=== PATIENT | female | born 1940 | race Caucasian/White ===

== ENCOUNTER → 2016-05-03 | Outpatient (CLI) | payer MEDICARE, OTHER ==
[2016-05-03 09:20] LABS: CHLORIDE,CL 105 mmol/L (98-110); SODIUM,NA 140 mmol/L (136-146)
== END | disposition home or self-care (01) ==
LOC: MW.CHIM 08:32
PROVIDERS: ATTEND Internal Medicine
DX: M54.9 Dorsalgia, unspecified (principal); G89.29 Other chronic pain; E87.6 Hypokalemia; E66.9 Obesity, unspecified; R00.0 Tachycardia, unspecified; L76.31 Postprocedural hematoma of skin and subcutaneous tissue following a dermatologic procedure; T81.4XXA Infection following a procedure, initial encounter; N62 Hypertrophy of breast
CPT/HCPCS: 36415; 80053; 80061; 84443; 85025; 99214

== ENCOUNTER 2017-06-21 08:44 | Emergency (ER) | payer MEDICARE, OTHER ==
--- NOTE | 2017-06-21 08:55 | EDM.PDOC ---
ED HPI GENERAL MEDICAL PROBLEM - General Stated Complaint: NOSE BLEED Time Seen by Provider: 06/21/17 08:47 - History of Present Illness INITIAL COMMENTS - FREE TEXT/NARRATIVE: HISTORY AND PHYSICAL: History of present illness: Patient 76-year-old white female who is on Plavix and presents a concern of epistaxis from the right nares this started in the office of trauma she awoke with it. There's been no other concern no dizziness no chest pain shortness breath or other complaints. Review of systems: As per history of present illness and below otherwise all systems reviewed and negative. Past medical history: As per history of present illness and as reviewed below otherwise noncontributory. Surgical history: As per history of present illness and as reviewed below otherwise noncontributory. Social history: No reported history of drug or alcohol abuse. Family history: As per history of present illness and as reviewed below otherwise noncontributory. Physical exam: HEENT: Atraumatic, normocephalic, pupils reactive, negative for conjunctival pallor or scleral icterus, mucous membranes moist, throat clear, neck supple, nontender, trachea midline. Patient has epistaxis noted from her right nares the sources are not clearly identified. Lungs: Clear to auscultation, breath sounds equal bilaterally, chest nontender. Heart: S1S2, regular, negative for clicks, rubs, or JVD. Abdomen: Soft, nondistended, nontender. Negative for masses or hepatosplenomegaly. Negative for costovertebral tenderness. Pelvis: Stable nontender. Genitourinary: Deferred. Rectal: Deferred. Extremities: Atraumatic, negative for cords or calf pain. Neurovascular unremarkable. Neuro: Awake, alert, oriented. Cranial nerves II through XII unremarkable. Cerebellum unremarkable. Motor and sensory unremarkable throughout. Exam nonfocal. Diagnostics: None Therapeutics: Patient had clots cleared by blowing Rhino Rocket was placed right nares and plume was inflated good hemostasis with no evidence of anterior-posterior bleeding on reevaluation this was secured mustache dressing was applied. Impression: #1 right-sided epistaxis status post Rhino Rocket placement Definitive disposition and diagnosis as appropriate pending reevaluation and review of above. - Related Data Allergies Allergy/AdvReac Type Severity Reaction Status Date / Time atorvastatin calcium Allergy Unknown Verified 06/21/17 08:50 [From Lipitor] clarithromycin Allergy Unknown Verified 06/21/17 08:50 gabapentin [From Neurontin] Allergy Unknown Verified 06/21/17 08:50 ibuprofen Allergy Unknown Verified 06/21/17 08:50 levetiracetam [From Keppra] Allergy Nausea and Verified 06/21/17 08:50 Vomiting pitavastatin calcium Allergy Nausea and Verified 06/21/17 08:50 [From Livalo] Vomiting pravastatin Allergy Nausea and Verified 06/21/17 08:50 Vomiting pregabalin [From Lyrica] Allergy Unknown Verified 06/21/17 08:50 rosuvastatin calcium Allergy Unknown Verified 06/21/17 08:50 [From Crestor] "All antibiotics" Allergy Unknown Other Uncoded 06/21/17 08:50 keppra Allergy Nausea and Uncoded 06/21/17 08:50 Vomiting tape Allergy Rash Uncoded 06/21/17 08:50 Home Meds: Home Meds Clopidogrel [Plavix] 75 mg PO DAILY 09/09/14 [History] Hydrochlorothiazide 12.5 mg PO DAILY 09/09/14 [History] Isosorbide Mononitrate [Isosorbide Mononitrate ER] 30 mg PO DAILY 09/09/14 [ History] Multivitamin [Multivitamins] 1 tab PO DAILY 09/16/14 [History] Metoprolol Tartrate 100 mg PO DAILY #30 tablet 09/17/14 [Rx] Aspirin [Halfprin] 81 mg PO DAILY 10/11/14 [History] L.acidoph,Paracasei, B.lactis [Probiotic] 1 cap PO DAILY 10/11/14 [History] Losartan [Cozaar] 25 mg PO DAILY 10/11/14 [History] Ranolazine [Ranexa] 500 mg PO BID 04/12/15 [History] Vancomycin HCl 125 mg PO BID 04/12/15 [History] prednisoLONE [Prednisolone] 1 drop OP DAILY 04/12/15 [History] Past Medical History Cardiovascular History: Reports: High Cholesterol, Hypertension, Stents Respiratory History: Reports: COPD Gastrointestinal History: Reports: GERD, Other (See Below) Genitourinary History: Reports: UTI, 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 ED EXAM, GENERAL - Physical Exam Exam: See Below (See dictation) Course - Vital Signs Last Recorded V/S: Last Vital Signs Temp 36.6 C 06/21/17 08:50 Pulse 106 H 06/21/17 08:50 Resp 16 06/21/17 08:50 BP 149/95 H 06/21/17 08:50 Pulse Ox 99 06/21/17 08:50 Departure - Departure Time of Disposition: 08:56 Disposition: Home, Self-Care 01 Condition: Good Clinical Impression: Epistaxis - Discharge Information Referrals: PCP,None [Primary Care Provider] - Additional Instructions: The following information is given to patients seen in the emergency department who are being discharged to home. This information is to outline your options for follow-up care. We provide all patients seen in our emergency department with a follow-up referral. The need for follow-up, as well as the timing and circumstances, are variable depending upon the specifics of your emergency department visit. If you don't have a primary care physician on staff, we will provide you with a referral. We always advise you to contact your personal physician following an emergency department visit to inform them of the circumstance of the visit and for follow-up with them and/or the need for any referrals to a consulting specialist. The emergency department will also refer you to a specialist when appropriate. This referral assures that you have the opportunity for followup care with a specialist. All of these measure are taken in an effort to provide you with optimal care, which includes your followup. Under all circumstances we always encourage you to contact your private physician who remains a resource for coordinating your care. When calling for followup care, please make the office aware that this follow-up is from your recent emergency room visit. If for any reason you are refused follow-up, please contact the [facility] emergency department at and asked to speak to the emergency department charge nurse. Follow-up 24-48 hours for reevaluation and Rhino Rocket removal Bactrim as directed return as needed as discussed
[2017-06-21 09:39] VITALS: BP 119/58
== END 2017-06-21 09:49 | disposition home or self-care (01) ==
LOC: MW.ED 08:44
DX: R04.0 Epistaxis (principal); J44.9 Chronic obstructive pulmonary disease, unspecified; E78.00 Pure hypercholesterolemia, unspecified; I10 Essential (primary) hypertension; Z79.01 Long term (current) use of anticoagulants; Z88.8 Allergy status to other drugs, medicaments and biological substances; Z88.6 Allergy status to analgesic agent; Z79.899 Other long term (current) drug therapy; Z79.82 Long term (current) use of aspirin; Z87.440 Personal history of urinary (tract) infections
CPT/HCPCS: 30903; 99282; 99283

== ENCOUNTER 2017-06-23 08:43 | Emergency (ER) | payer MEDICARE, OTHER ==
--- NOTE | 2017-06-23 09:07 | EDM.PDOC ---
ED HPI GENERAL MEDICAL PROBLEM - General Chief Complaint: General Stated Complaint: F/U Time Seen by Provider: 06/23/17 09:04 Source of Information: Reports: Patient - History of Present Illness INITIAL COMMENTS - FREE TEXT/NARRATIVE: HISTORY AND PHYSICAL: History of present illness: Patient presents to remove rapid Rhino which was placed 48 hours prior due to epistaxis patient is on Plavix aspirin was held No fever nausea vomiting chills sweats no rebleed after removal Review of systems: As per history of present illness and below otherwise all systems reviewed and negative. Past medical history: As per history of present illness and as reviewed below otherwise noncontributory. Surgical history: As per history of present illness and as reviewed below otherwise noncontributory. Social history: No reported history of drug or alcohol abuse. Family history: As per history of present illness and as reviewed below otherwise noncontributory. Physical exam: HEENT: Atraumatic, normocephalic, pupils reactive, negative for conjunctival pallor or scleral icterus, mucous membranes moist, throat clear, neck supple, nontender, trachea midline. Epistaxis resolved, a beefy inflamed area on the right there was found and cauterized with nitrate stick as it was likely the source of bleed Lungs: Clear to auscultation, breath sounds equal bilaterally, chest nontender. Heart: S1S2, regular, negative for clicks, rubs, or JVD. Abdomen: Soft, nondistended, nontender. Negative for masses or hepatosplenomegaly. Negative for costovertebral tenderness. Pelvis: Stable nontender. Genitourinary: Deferred. Rectal: Deferred. Extremities: Atraumatic, negative for cords or calf pain. Neurovascular unremarkable. Neuro: Awake, alert, oriented. Cranial nerves II through XII unremarkable. Cerebellum unremarkable. Motor and sensory unremarkable throughout. Exam nonfocal. Diagnostics: [Clinical ] Therapeutics: [Rapid Rhino remove Cautery with nitrate stick ] Impression: [ epistaxis resolved ] Definitive disposition and diagnosis as appropriate pending reevaluation and review of above. - Related Data Allergies Allergy/AdvReac Type Severity Reaction Status Date / Time atorvastatin calcium Allergy Unknown Verified 06/23/17 09:05 [From Lipitor] clarithromycin Allergy Unknown Verified 06/23/17 09:05 gabapentin [From Neurontin] Allergy Unknown Verified 06/23/17 09:05 ibuprofen Allergy Unknown Verified 06/23/17 09:05 levetiracetam [From Keppra] Allergy Nausea and Verified 06/23/17 09:05 Vomiting pitavastatin calcium Allergy Nausea and Verified 06/23/17 09:05 [From Livalo] Vomiting pravastatin Allergy Nausea and Verified 06/23/17 09:05 Vomiting pregabalin [From Lyrica] Allergy Unknown Verified 06/23/17 09:05 rosuvastatin calcium Allergy Unknown Verified 06/23/17 09:05 [From Crestor] "All antibiotics" Allergy Unknown Other Uncoded 06/21/17 08:50 keppra Allergy Nausea and Uncoded 06/21/17 08:50 Vomiting tape Allergy Rash Uncoded 06/21/17 08:50 Home Meds: Home Meds Clopidogrel [Plavix] 75 mg PO DAILY 09/09/14 [History] Hydrochlorothiazide 12.5 mg PO DAILY 09/09/14 [History] Isosorbide Mononitrate [Isosorbide Mononitrate ER] 30 mg PO DAILY 09/09/14 [ History] Multivitamin [Multivitamins] 1 tab PO DAILY 09/16/14 [History] Metoprolol Tartrate 100 mg PO DAILY #30 tablet 09/17/14 [Rx] Aspirin [Halfprin] 81 mg PO DAILY 10/11/14 [History] L.acidoph,Paracasei, B.lactis [Probiotic] 1 cap PO DAILY 10/11/14 [History] Losartan [Cozaar] 25 mg PO DAILY 10/11/14 [History] Ranolazine [Ranexa] 500 mg PO BID 04/12/15 [History] Vancomycin HCl 125 mg PO BID 04/12/15 [History] prednisoLONE [Prednisolone] 1 drop OP DAILY 04/12/15 [History] Past Medical History Cardiovascular History: Reports: High Cholesterol, Hypertension, Stents Respiratory History: Reports: COPD Gastrointestinal History: Reports: GERD, Other (See Below) Genitourinary History: 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: UTI, 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: Musculoskeletal History: Reports: Arthritis - Infectious Disease History Infectious Disease History: Reports: C-Difficile, Chicken Pox, Shingles - Past Surgical History Musculoskeletal Surgical History: Reports: Knee Replacement, Other (See Below) Social & Family History - Family History Family Medical History: Noncontributory - Tobacco Use Smoking Status *Q: Never Smoker Second Hand Smoke Exposure: No - Caffeine Use Caffeine Use: Reports: None - Recreational Drug Use Recreational Drug Use: No ED ROS GENERAL - Review of Systems Review Of Systems: ROS reveals no pertinent complaints other than HPI. ED EXAM, GENERAL - Physical Exam Exam: See Below Course - Vital Signs Last Recorded V/S: Last Vital Signs Temp 97.0 F 06/23/17 08:55 Pulse 68 06/23/17 08:55 Resp 16 06/23/17 08:55 BP 108/38 L 06/23/17 08:55 Pulse Ox 94 L 06/23/17 08:55 Departure - Departure Time of Disposition: :06 Disposition: Home, Self-Care 01 Condition: Good Clinical Impression: Epistaxis - Discharge Information Referrals: Tyler Guerrero MD [Primary Care Provider] - Additional Instructions: The following information is given to patients seen in the emergency department who are being discharged to home. This information is to outline your options for follow-up care. We provide all patients seen in our emergency department with a follow-up referral. The need for follow-up, as well as the timing and circumstances, are variable depending upon the specifics of your emergency department visit. If you don't have a primary care physician on staff, we will provide you with a referral. We always advise you to contact your personal physician following an emergency department visit to inform them of the circumstance of the visit and for follow-up with them and/or the need for any referrals to a consulting specialist. The emergency department will also refer you to a specialist when appropriate. This referral assures that you have the opportunity for follow-up care with a specialist. All of these measure are taken in an effort to provide you with optimal care, which includes your follow-up. Under all circumstances we always encourage you to contact your private physician who remains a resource for coordinating your care. When calling for follow-up care, please make the office aware that this follow-up is from your recent emergency room visit. If for any reason you are refused follow-up, please contact the [facility] emergency department at and asked to speak to the emergency department charge nurse.
[2017-06-23 10:25] VITALS: BP 116/35
== END 2017-06-23 09:45 | disposition home or self-care (01) ==
LOC: MW.ED 08:43
DX: R04.0 Epistaxis (principal); E78.00 Pure hypercholesterolemia, unspecified; I10 Essential (primary) hypertension; Z88.8 Allergy status to other drugs, medicaments and biological substances; Z88.1 Allergy status to other antibiotic agents; Z88.6 Allergy status to analgesic agent; Z79.899 Other long term (current) drug therapy; Z79.82 Long term (current) use of aspirin
CPT/HCPCS: 99282

== ENCOUNTER 2018-08-18 08:55 | Observation (INO) | payer MEDICARE, OTHER ==
[2018-08-18] MEDS ORDERED: Sodium Chloride 0.9% 2.5 ML Syringe FLUSH PRN (09:06)
[2018-08-18] MEDS ORDERED: Sodium Chloride 0.9% 10 ML Syringe FLUSH PRN (09:06)
[2018-08-18] MEDS ORDERED: Aspirin 81 MG Tab.Chew PO ONE (09:06)
[2018-08-18] MEDS ORDERED: Pantoprazole 40 MG Vial ONE (09:10)
[2018-08-18] MEDS ORDERED: Sodium Chloride 0.9% 20 ML ONE (09:11)
--- NOTE | 2018-08-18 09:11 | EDM.PDOC ---
ED HPI GENERAL MEDICAL PROBLEM - General Chief Complaint: Chest Pain Stated Complaint: CHEST PAINS Time Seen by Provider: 08/18/18 08:58 - History of Present Illness INITIAL COMMENTS - FREE TEXT/NARRATIVE: HISTORY AND PHYSICAL: History of present illness: The patient is a 77-year-old female with a history of hypertension hypercholesterolemia sleep apnea for which she uses CPAP, Mild COPD who has had cardiac disease in the past and has had stent placement times multiple with the last one being in 2011 and who follows with Dr. Richey at [facility] for cardiac issues and presents with right-sided chest wall pain and right shoulder pain that woke her from sleep at 2 AM. The patient says that when she has cardiac chest pain it is on the right side not on the left side and she does use her nitroglycerin when this occurs she has not used it recently. She said that she had a normal day yesterday and was sleeping and at 2 AM awoke with the discomfort associated with indigestion. She did not have any vomiting or nausea or abdominal pain and she said that she took 2 sublingual nitros at 3 AM and the pain did ease up but didn't completely go away. She says she has been awake since that time because of the discomfort and it worsened again and is currently a 7/10. She says that when she moves her arm on the right side there is discomfort and she says she has occasional intermittent episodes of chest wall pain as a result of a breast surgery/ reduction in the past. She has no history of trauma coughing or upper respiratory symptoms and does not feel short of breath. She currently rates her pain as a 7/10. She says it is difficult to rate but that is what she is giving it. She takes aspirin daily and her last dose was last evening as well as Plavix. She has no leg pain or swelling and has no palpitations. She otherwise has been eating and drinking normally. She has no upper abdominal pain and has a history of a cholecystectomy Review of systems: As per history of present illness and below otherwise all systems reviewed and negative. Past medical history: As per history of present illness and as reviewed below otherwise noncontributory. Surgical history: As per history of present illness and as reviewed below otherwise noncontributory. Social history: No reported history of drug or alcohol abuse. Family history: As per history of present illness and as reviewed below otherwise noncontributory. Physical exam: General: Well-developed well-nourished mildly overweight female who is nontoxic and vital signs are noted by me HEENT: Atraumatic, normocephalic, pupils reactive, negative for conjunctival pallor or scleral icterus, mucous membranes moist, throat clear, neck supple, nontender, trachea midline. Lungs: Clear to auscultation, breath sounds equal bilaterally, chest wall has tenderness with palpation to the right of the midline along the anterior chest wall which reproduces her plane somewhat but there is no defects crepitus or soft tissue changes. Also when I move the patient's right upper extremity elicits chest wall discomfort mimics her pain. Heart: S1S2, regular, negative for clicks, rubs, or JVD. no overt murmurs Abdomen: Soft, nondistended, nontender. Negative for masses or hepatosplenomegaly. Negative for costovertebral tenderness. Pelvis: Stable nontender. Genitourinary: Deferred. Rectal: Deferred. Extremities: Atraumatic, negative for cords or calf pain. Neurovascular unremarkable. no pedal edema or leg asymmetry Neuro: Awake, alert, oriented. Cranial nerves II through XII unremarkable. Cerebellum unremarkable. Motor and sensory unremarkable throughout. Exam nonfocal. Diagnostics: EKG chest x-ray CBC CMP INR troponin d-dimer CTA of the chest Therapeutics: IV O2 monitor aspirin nitroglycerin sublingual Protonix morphine Patient did not get any relief with the sublingual nitroglycerin. It went from a 7 to a 6 and then back up to an 8 and she says it is more deep achy pain and is now continuing to radiate to her right upper extremity. We will give a dose of morphine and in light of the positive d-dimer we will order a CTA of the chest Patient and family bedside are aware of all testing results and care plan for observation admission. The patient tells me that the chest discomfort is now almost completely gone with the morphine. Case was discussed with Dr. Andrea at 1140 who accepts the patient for observation admission Impression: Atypical right chest pain Definitive disposition and diagnosis as appropriate pending reevaluation and review of above. chest Pain Score (Numeric/FACES): 5 - Related Data Allergies Allergy/AdvReac Type Severity Reaction Status Date / Time atorvastatin calcium Allergy Unknown Verified 08/18/18 09:01 [From Lipitor] clarithromycin Allergy Unknown Verified 08/18/18 09:01 gabapentin [From Neurontin] Allergy Unknown Verified 08/18/18 09:01 ibuprofen Allergy Unknown Verified 08/18/18 09:01 levetiracetam [From Keppra] Allergy Nausea and Verified 08/18/18 09:01 Vomiting pitavastatin calcium Allergy Nausea and Verified 08/18/18 09:01 [From Livalo] Vomiting pravastatin Allergy Nausea and Verified 08/18/18 09:01 Vomiting pregabalin [From Lyrica] Allergy Unknown Verified 08/18/18 09:01 rosuvastatin calcium Allergy Unknown Verified 08/18/18 09:01 [From Crestor] "All antibiotics" Allergy Unknown Other Uncoded 06/21/17 08:50 keppra Allergy Nausea and Uncoded 06/21/17 08:50 Vomiting tape Allergy Rash Uncoded 06/21/17 08:50 Home Meds: Home Meds Clopidogrel [Plavix] 75 mg PO DAILY 09/09/14 [History] Isosorbide Mononitrate [Isosorbide Mononitrate ER] 60 mg PO DAILY 09/09/14 [ History] hydroCHLOROthiazide [Hydrochlorothiazide] 25 mg PO DAILY 09/09/14 [History] Aspirin [Halfprin] 81 mg PO DAILY 10/11/14 [History] Losartan [Cozaar] 50 mg PO DAILY 10/11/14 [History] Aspirin 325 mg PO DAILY 06/23/17 [History] Nitroglycerin [Nitrostat] 0.4 mg SL .EVERY 5 MINUTES PRN MDD 3 TABLETS 06/23/17 [History] cycloSPORINE [Restasis Multidose] 1 drop EYEBOTH BID 06/23/17 [History] Metoprolol Tartrate 50 mg PO BID 08/18/18 [History] amLODIPine [Norvasc] 5 mg PO DAILY 08/18/18 [History] Past Medical History HEENT History: Reports: Other (See Below) Other HEENT History: dry eyes Cardiovascular History: Reports: High Cholesterol, Hypertension, Stents Respiratory History: Reports: COPD Gastrointestinal History: Reports: GERD Genitourinary History: Reports: UTI, Recurrent [employer] History: Reports: Musculoskeletal History: Reports: Arthritis - Infectious Disease History Infectious Disease History: Reports: C-Difficile, Chicken Pox, Shingles - Past Surgical History HEENT Surgical History: Reports: Cataract Surgery GI Surgical History: Reports: Appendectomy, Cholecystectomy Musculoskeletal Surgical History: Reports: Knee Replacement, Other (See Below) Other Musculoskeletal Surgeries/Procedures:: bilateral Social & Family History - Family History Family Medical History: Noncontributory - Caffeine Use Caffeine Use: Reports: Coffee, Tea ED ROS GENERAL - Review of Systems Review Of Systems: ROS reveals no pertinent complaints other than HPI. ED EXAM, GENERAL - Physical Exam Exam: See Below (See dictation) Course - Vital Signs Last Recorded V/S: Last Vital Signs Temp 36.3 C 08/18/18 09:01 Pulse 51 L 08/18/18 10:09 Resp 17 08/18/18 10:09 BP 119/53 L 08/18/18 10:09 Pulse Ox 97 08/18/18 10:09 - Orders/Labs/Meds Orders: Active Orders 24 hr Category Date Time Status Patient Status [ADT] Stat ADT 08/18/18 11:43 Ordered Cardiac Monitoring [RC] . DIRECTED Care 08/18/18 09:05 Active EKG Documentation Completion [RC] STAT Care 08/18/18 09:05 Active Oxygen Therapy, ED [RC] ASDIRECTED Care 08/18/18 09:05 Active Pulse Oximetry [RC] ASDIRECTED Care 08/18/18 09:05 Active Sodium Chloride 0.9% [Saline Flush] Med 08/18/18 09:06 Active 10 ml FLUSH ASDIRECTED PRN Sodium Chloride 0.9% [Saline Flush] Med 08/18/18 09:06 Active 2.5 ml FLUSH ASDIRECTED PRN Saline Lock Insert [OM.PC] Stat Oth 08/18/18 09:05 Ordered Medication Orders Sodium Chloride (Saline Flush) 10 ml FLUSH ASDIRECTED PRN PRN Reason: Keep Vein Open Sodium Chloride (Saline Flush) 2.5 ml FLUSH ASDIRECTED PRN PRN Reason: Keep Vein Open Labs: Laboratory Tests 08/18/18 08/18/18 08/18/18 Range/Units 09:05 09:05 09:05 WBC 9.89 (4.0-11.0) K/uL RBC 4.59 (4.30-5.90) M/uL Hgb 12.2 (12.0-16.0) g/dL Hct 38.7 (36.0-46.0) % MCV 84.3 (80.0-98.0) fL MCH 26.6 L (27.0-32.0) pg MCHC 31.5 (31.0-37.0) g/dL RDW Std Deviation 48.2 (28.0-62.0) fl RDW Coeff of Raj 16 H (11.0-15.0) % Plt Count 143 L (150-400) K/uL MPV 10.40 (7.40-12.00) fL Neut % (Auto) 35.3 L (48.0-80.0) % Lymph % (Auto) 56.3 H (16.0-40.0) % Tucker % (Auto) 5.8 (0.0-15.0) % Eos % (Auto) 2.2 (0.0-7.0) % Baso % (Auto) 0.4 (0.0-1.5) % Neut # (Auto) 3.5 (1.4-5.7) K/uL Lymph # (Auto) 5.6 H (0.6-2.4) K/uL Tucker # (Auto) 0.6 (0.0-0.8) K/uL Eos # (Auto) 0.2 (0.0-0.7) K/uL Baso # (Auto) 0.0 (0.0-0.1) K/uL Nucleated RBC % 0.0 /100WBC Nucleated RBCs # 0 K/uL INR 0.97 D-Dimer, Quantitative (0.0-0.50) mg/L FEU Sodium 138 (136-145) mmol/L Potassium 3.9 (3.5-5.1) mmol/L Chloride 104 (98-107) mmol/L Carbon Dioxide 25.0 (21.0-32.0) mmol/L BUN 25 H (7.0-18.0) mg/dL Creatinine 1.2 H (0.6-1.0) mg/dL Est Cr Clr Drug Dosing 36.75 mL/min Estimated GFR (MDRD) 43.6 ml/min Glucose 153 H (74-106) mg/dL Calcium 8.7 (8.5-10.1) mg/dL Total Bilirubin 0.4 (0.2-1.0) mg/dL AST 18 (15-37) IU/L ALT 27 (14-63) IU/L Alkaline Phosphatase 81 (46-116) U/L Troponin I < 0.050 (0.000-0.056) ng/mL Total Protein 7.2 (6.4-8.2) g/dL Albumin 3.4 (3.4-5.0) g/dL Globulin 3.8 (2.6-4.0) g/dL Albumin/Globulin Ratio 0.9 (0.9-1.6) 08/18/18 Range/Units 09:05 WBC (4.0-11.0) K/uL RBC (4.30-5.90) M/uL Hgb (12.0-16.0) g/dL Hct (36.0-46.0) % MCV (80.0-98.0) fL MCH (27.0-32.0) pg MCHC (31.0-37.0) g/dL RDW Std Deviation (28.0-62.0) fl RDW Coeff of Raj (11.0-15.0) % Plt Count (150-400) K/uL MPV (7.40-12.00) fL Neut % (Auto) (48.0-80.0) % Lymph % (Auto) (16.0-40.0) % Tucker % (Auto) (0.0-15.0) % Eos % (Auto) (0.0-7.0) % Baso % (Auto) (0.0-1.5) % Neut # (Auto) (1.4-5.7) K/uL Lymph # (Auto) (0.6-2.4) K/uL Tucker # (Auto) (0.0-0.8) K/uL Eos # (Auto) (0.0-0.7) K/uL Baso # (Auto) (0.0-0.1) K/uL Nucleated RBC % /100WBC Nucleated RBCs # K/uL INR D-Dimer, Quantitative 3.91 H (0.0-0.50) mg/L FEU Sodium (136-145) mmol/L Potassium (3.5-5.1) mmol/L Chloride (98-107) mmol/L Carbon Dioxide (21.0-32.0) mmol/L BUN (7.0-18.0) mg/dL Creatinine (0.6-1.0) mg/dL Est Cr Clr Drug Dosing mL/min Estimated GFR (MDRD) ml/min Glucose (74-106) mg/dL Calcium (8.5-10.1) mg/dL Total Bilirubin (0.2-1.0) mg/dL AST (15-37) IU/L ALT (14-63) IU/L Alkaline Phosphatase (46-116) U/L Troponin I (0.000-0.056) ng/mL Total Protein (6.4-8.2) g/dL Albumin (3.4-5.0) g/dL Globulin (2.6-4.0) g/dL Albumin/Globulin Ratio (0.9-1.6) Meds: Medications Generic Name Dose Route Start Last Admin Trade Name Freq PRN Reason Stop Dose Admin Sodium Chloride 10 ml 08/18/18 09:06 Saline Flush FLUSH ASDIRECTED PRN Keep Vein Open Sodium Chloride 2.5 ml 08/18/18 09:06 Saline Flush FLUSH ASDIRECTED PRN Keep Vein Open Discontinued Medications Generic Name Dose Route Start Last Admin Trade Name Freq PRN Reason Stop Dose Admin Aspirin 324 mg 08/18/18 09:06 08/18/18 09:15 Aspirin PO 08/18/18 09:07 324 mg ONETIME ONE Administration Sodium Chloride Confirm 08/18/18 09:11 08/18/18 09:19 Normal Saline Administered 08/18/18 09:12 Not Given Dose 20 mls @ as directed .ROUTE .STK-MED ONE Iopamidol 50 ml 08/18/18 11:05 08/18/18 11:08 Isovue Multipack-370 (76%) IVPUSH 08/18/18 11:06 50 ml ONETIME STA Administration Morphine Sulfate 2 mg 08/18/18 10:17 08/18/18 10:23 Morphine IVPUSH 08/18/18 10:18 2 mg ONETIME ONE Administration Nitroglycerin 0.4 mg 08/18/18 09:06 08/18/18 09:28 Nitrostat SL 0.4 mg Q5M PRN Administration Chest Pain Ondansetron HCl 4 mg 08/18/18 09:58 08/18/18 10:15 Zofran IVPUSH 08/18/18 09:59 4 mg ONETIME ONE Administration Pantoprazole Sodium 80 mg 08/18/18 09:12 08/18/18 09:19 Protonix Iv IVPUSH 08/18/18 09:13 80 mg .BOLUS ONE Administration Pantoprazole Sodium Confirm 08/18/18 09:10 08/18/18 09:18 Protonix Iv Administered 08/18/18 09:11 Not Given Dose 40 mg .ROUTE .STK-MED ONE Departure - Departure Time of Disposition: 11:44 Disposition: Refer to Observation Condition: Good Clinical Impression: Atypical chest pain - Discharge Information Referrals: PCP,None [Primary Care Provider] - Forms: ED Department Discharge - My Orders Last 24 Hours: My Active Orders 08/18/18 09:05 Cardiac Monitoring [RC] . DIRECTED EKG Documentation Completion [RC] STAT Oxygen Therapy, ED [RC] ASDIRECTED Pulse Oximetry [RC] ASDIRECTED Saline Lock Insert [OM.PC] Stat 08/18/18 09:06 Sodium Chloride 0.9% [Saline Flush] 10 ml FLUSH ASDIRECTED PRN Sodium Chloride 0.9% [Saline Flush] 2.5 ml FLUSH ASDIRECTED PRN 08/18/18 11:43 Patient Status [ADT] Stat - Assessment/Plan Last 24 Hours: My Active Orders 08/18/18 09:05 Cardiac Monitoring [RC] . DIRECTED EKG Documentation Completion [RC] STAT Oxygen Therapy, ED [RC] ASDIRECTED Pulse Oximetry [RC] ASDIRECTED Saline Lock Insert [OM.PC] Stat 08/18/18 09:06 Sodium Chloride 0.9% [Saline Flush] 10 ml FLUSH ASDIRECTED PRN Sodium Chloride 0.9% [Saline Flush] 2.5 ml FLUSH ASDIRECTED PRN 08/18/18 11:43 Patient Status [ADT] Stat
[2018-08-18] MEDS ORDERED: Pantoprazole 40 MG Vial IVPUSH ONE (09:12)
[2018-08-18] MEDS: Nitroglycerin 0.4 MG Tab.SL SL PRN ×3 (09:16→09:28)
[2018-08-18 09:49] LABS: CHLORIDE,CL 104 mmol/L (98-107); SODIUM,NA 138 mmol/L (136-145)
--- NOTE | 2018-08-18 09:54 | CR ---
EXAMINATION: Portable chest radiograph. HISTORY: Shortness of breath. Comparison: 02/28/2017. FINDINGS: The trachea is midline. The cardiomediastinal silhouette is within normal limits. No pulmonary infiltrates, effusions or pneumothorax. Osseous structures appear unremarkable. IMPRESSION: No acute cardiopulmonary process.
[2018-08-18] MEDS ORDERED: Ondansetron 4 MG/2 ML SDV IVPUSH ONE (09:58)
[2018-08-18] MEDS ORDERED: Morphine 2 MG/ML Syringe IVPUSH ONE (10:17)
[2018-08-18] MEDS ORDERED: Iopamidol 755 MG/ML 500 ML Multipack Bottle IVPUSH STA (11:05)
--- NOTE | 2018-08-18 11:28 | CT ---
EXAMINATION: CTA chest HISTORY: Increased d-dimer COMPARISON: 01/15/2011 TECHNIQUE: Axial CT imaging obtained through the chest following the administration of 50 mL of Isovue-370 in the right antecubital fossa. Coronal and sagittal reconstructions obtained. FINDINGS: The lungs are clear without focal consolidation. No pleural effusion or pneumothorax. Mild atelectasis. The heart is borderline in size without a pericardial effusion. Moderate coronary artery calcifications are noted. The main and central pulmonary arteries are patent. Calcified granuloma within the right lung base. Mildly prominent mediastinal soft tissue/lymph nodes measuring up to 1 cm. Not significantly changed. Small area of fat necrosis within the upper right breast. Central airways are clear. No axillary lymphadenopathy. Visualized images of the upper abdomen appear normal. No suspicious osseous identified. IMPRESSION: 1. No acute cardiopulmonary finding. 2. Moderate coronary artery calcifications.
[2018-08-18] MEDS: Sodium Chloride 0.9% 1,000 ML IV SCH ×3 (12:20→22:54)
--- NOTE | 2018-08-18 13:36 | PCM.HP ---
H&P History of Present Illness - General Date of Service: 08/18/18 Admit Problem/Dx: Admission Diagnosis/Problem Admission Diagnosis/Problem Atypical chest pain - History of Present Illness Initial Comments - Free Text/Narative: 77 yo female with pmh of CAD, s/p stents, COPD, and MIRACLE who presents with one day history of right shoulder pain. The pain radiates to the neck, chest and arm. The pain is made worse withe movement of the shoulder. She denies any shortness of breath, fevers, cough, or lightheadedness. Inital EKG and cardiac enzymes did not show any signs of ischemia. D-dimer was elevated but CT chest scan was negative for PE. chest Pain Score (Numeric/FACES): 5 Right Shoulder Pain Score (Numeric/FACES): 6 - Related Data Allergies/Adverse Reactions: Allergies Allergy/AdvReac Type Severity Reaction Status Date / Time atorvastatin calcium Allergy Unknown Verified 08/18/18 13:23 [From Lipitor] clarithromycin Allergy Unknown Verified 08/18/18 13:23 gabapentin [From Neurontin] Allergy Unknown Verified 08/18/18 13:23 ibuprofen Allergy Unknown Verified 08/18/18 13:23 levetiracetam [From Keppra] Allergy Nausea and Verified 08/18/18 13:23 Vomiting pitavastatin calcium Allergy Nausea and Verified 08/18/18 13:23 [From Livalo] Vomiting pravastatin Allergy Nausea and Verified 08/18/18 13:23 Vomiting pregabalin [From Lyrica] Allergy Unknown Verified 08/18/18 13:23 rosuvastatin calcium Allergy Unknown Verified 08/18/18 13:23 [From Crestor] "All antibiotics" Allergy Unknown Other Uncoded 08/18/18 13:23 keppra Allergy Nausea and Uncoded 08/18/18 13:23 Vomiting tape Allergy Rash Uncoded 08/18/18 13:23 Home Medications: Home Meds Clopidogrel [Plavix] 75 mg PO DAILY 09/09/14 [History] Isosorbide Mononitrate [Isosorbide Mononitrate ER] 60 mg PO DAILY 09/09/14 [ History] hydroCHLOROthiazide [Hydrochlorothiazide] 25 mg PO DAILY 09/09/14 [History] Aspirin [Halfprin] 81 mg PO DAILY 10/11/14 [History] Losartan [Cozaar] 50 mg PO DAILY 10/11/14 [History] Aspirin 325 mg PO DAILY 06/23/17 [History] Nitroglycerin [Nitrostat] 0.4 mg SL .EVERY 5 MINUTES PRN MDD 3 TABLETS 06/23/17 [History] cycloSPORINE [Restasis Multidose] 1 drop EYEBOTH BID 06/23/17 [History] Metoprolol Tartrate 50 mg PO BID 08/18/18 [History] amLODIPine [Norvasc] 5 mg PO DAILY 08/18/18 [History] traMADol [Ultram] 100 mg PO ASDIRECTED PRN 08/18/18 [History] Past Medical History HEENT History: Reports: Other (See Below) Other HEENT History: dry eyes Cardiovascular History: Reports: High Cholesterol, Hypertension, Stents Respiratory History: Reports: COPD Gastrointestinal History: Reports: GERD Genitourinary History: Reports: UTI, Recurrent 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: Musculoskeletal History: Reports: Arthritis Neurological History: Reports: Migraines Psychiatric History: Reports: None Endocrine/Metabolic History: Reports: None Hematologic History: Reports: None Immunologic History: Reports: None Oncologic (Cancer) History: Reports: None Dermatologic History: Reports: Eczema - Infectious Disease History Infectious Disease History: Reports: C-Difficile, Chicken Pox, Shingles - Past Surgical History HEENT Surgical History: Reports: Cataract Surgery GI Surgical History: Reports: Appendectomy, Cholecystectomy Musculoskeletal Surgical History: Reports: Knee Replacement, Other (See Below) Other Musculoskeletal Surgeries/Procedures:: bilateral Social & Family History - Family History Family Medical History: Noncontributory - Tobacco Use Smoking Status *Q: Never Smoker Second Hand Smoke Exposure: No - Caffeine Use Caffeine Use: Reports: Coffee, Tea - Recreational Drug Use Recreational Drug Use: No H&P Review of Systems - Review of Systems: Review Of Systems: ROS reveals no pertinent complaints other than HPI. Exam - Exam Exam: See Below - Vital Signs Vital Signs: Last Vital Signs Temp 36.3 C 08/18/18 09:01 Pulse 46 L 08/18/18 12:05 Resp 18 08/18/18 12:05 BP 109/49 L 08/18/18 12:05 Pulse Ox 99 08/18/18 12:05 Weight: 99.79 kg - Exam General: Alert, Oriented HEENT: Mucosa Moist & [place] Neck: Supple, Trachea Midline Lungs: Clear to Auscultation, Normal Respiratory Effort Cardiovascular: Regular Rate, Regular Rhythm, Other (no chest wall tenderness, no lesions on chest) GI/Abdominal Exam: Soft, Non-Tender Extremities: No Pedal Edema, Other (pain on abduction of right shoulder and internal rotation.) Skin: Warm, Dry, Intact Neurological: No: Focal Deficit - Patient Data Lab Results Last 24 hrs: Laboratory Results - last 24 hr 08/18/18 08/18/18 08/18/18 Range/Units 09:05 09:05 09:05 WBC 9.89 (4.0-11.0) K/uL RBC 4.59 (4.30-5.90) M/uL Hgb 12.2 (12.0-16.0) g/dL Hct 38.7 (36.0-46.0) % MCV 84.3 (80.0-98.0) fL MCH 26.6 L (27.0-32.0) pg MCHC 31.5 (31.0-37.0) g/dL RDW Std Deviation 48.2 (28.0-62.0) fl RDW Coeff of Raj 16 H (11.0-15.0) % Plt Count 143 L (150-400) K/uL MPV 10.40 (7.40-12.00) fL Neut % (Auto) 35.3 L (48.0-80.0) % Lymph % (Auto) 56.3 H (16.0-40.0) % [place] % (Auto) 5.8 (0.0-15.0) % Eos % (Auto) 2.2 (0.0-7.0) % Baso % (Auto) 0.4 (0.0-1.5) % Neut # (Auto) 3.5 (1.4-5.7) K/uL Lymph # (Auto) 5.6 H (0.6-2.4) K/uL [place] # (Auto) 0.6 (0.0-0.8) K/uL Eos # (Auto) 0.2 (0.0-0.7) K/uL Baso # (Auto) 0.0 (0.0-0.1) K/uL Nucleated RBC % 0.0 /100WBC Nucleated RBCs # 0 K/uL INR 0.97 D-Dimer, Quantitative (0.0-0.50) mg/L FEU Sodium 138 (136-145) mmol/L Potassium 3.9 (3.5-5.1) mmol/L Chloride 104 (98-107) mmol/L Carbon Dioxide 25.0 (21.0-32.0) mmol/L BUN 25 H (7.0-18.0) mg/dL Creatinine 1.2 H (0.6-1.0) mg/dL Est Cr Clr Drug Dosing 36.75 mL/min Estimated GFR (MDRD) 43.6 ml/min Glucose 153 H (74-106) mg/dL Calcium 8.7 (8.5-10.1) mg/dL Total Bilirubin 0.4 (0.2-1.0) mg/dL AST 18 (15-37) IU/L ALT 27 (14-63) IU/L Alkaline Phosphatase 81 (46-116) U/L Troponin I < 0.050 (0.000-0.056) ng/mL Total Protein 7.2 (6.4-8.2) g/dL Albumin 3.4 (3.4-5.0) g/dL Globulin 3.8 (2.6-4.0) g/dL Albumin/Globulin Ratio 0.9 (0.9-1.6) 08/18/18 Range/Units 09:05 WBC (4.0-11.0) K/uL RBC (4.30-5.90) M/uL Hgb (12.0-16.0) g/dL Hct (36.0-46.0) % MCV (80.0-98.0) fL MCH (27.0-32.0) pg MCHC (31.0-37.0) g/dL RDW Std Deviation (28.0-62.0) fl RDW Coeff of Raj (11.0-15.0) % Plt Count (150-400) K/uL MPV (7.40-12.00) fL Neut % (Auto) (48.0-80.0) % Lymph % (Auto) (16.0-40.0) % [place] % (Auto) (0.0-15.0) % Eos % (Auto) (0.0-7.0) % Baso % (Auto) (0.0-1.5) % Neut # (Auto) (1.4-5.7) K/uL Lymph # (Auto) (0.6-2.4) K/uL [place] # (Auto) (0.0-0.8) K/uL Eos # (Auto) (0.0-0.7) K/uL Baso # (Auto) (0.0-0.1) K/uL Nucleated RBC % /100WBC Nucleated RBCs # K/uL INR D-Dimer, Quantitative 3.91 H (0.0-0.50) mg/L FEU Sodium (136-145) mmol/L Potassium (3.5-5.1) mmol/L Chloride (98-107) mmol/L Carbon Dioxide (21.0-32.0) mmol/L BUN (7.0-18.0) mg/dL Creatinine (0.6-1.0) mg/dL Est Cr Clr Drug Dosing mL/min Estimated GFR (MDRD) ml/min Glucose (74-106) mg/dL Calcium (8.5-10.1) mg/dL Total Bilirubin (0.2-1.0) mg/dL AST (15-37) IU/L ALT (14-63) IU/L Alkaline Phosphatase (46-116) U/L Troponin I (0.000-0.056) ng/mL Total Protein (6.4-8.2) g/dL Albumin (3.4-5.0) g/dL Globulin (2.6-4.0) g/dL Albumin/Globulin Ratio (0.9-1.6) Result Diagrams: 08/18/18 09:05 08/18/18 09:05 Problem List Initiated/Reviewed/Updated: Yes Orders Last 24hrs: Active Orders 24 hr Category Date Time Status Patient Status [ADT] Stat ADT 08/18/18 11:43 Active Antiembolic Devices [RC] PER UNIT ROUTINE Care 08/18/18 13:25 Ordered Cardiac Monitoring [RC] . DIRECTED Care 08/18/18 09:05 Active EKG Documentation Completion [RC] STAT Care 08/18/18 09:05 Active Oxygen Therapy [RC] PRN Care 08/18/18 13:24 Ordered Oxygen Therapy, ED [RC] ASDIRECTED Care 08/18/18 09:05 Active Pulse Oximetry [RC] ASDIRECTED Care 08/18/18 09:05 Active Up ad Ebonie [RC] ASDIRECTED Care 08/18/18 13:24 Ordered VTE/DVT Education [RC] PER UNIT ROUTINE Care 08/18/18 13:24 Ordered Vital Signs [RC] Q4H Care 08/18/18 13:24 Ordered Regular Diet [DIET] Diet 08/18/18 Breakfast Ordered TROPONIN I [CHEM] Q6H Lab 08/18/18 15:00 Ordered TROPONIN I [CHEM] Q6H Lab 08/18/18 21:00 Ordered Aspirin Med 08/19/18 09:00 Ordered 325 mg PO DAILY Clopidogrel [Plavix] Med 08/19/18 09:00 Ordered 75 mg PO DAILY Isosorbide Mononitrate [Imdur] Med 08/19/18 09:00 Ordered 60 mg PO DAILY Losartan [Cozaar] Med 08/19/18 09:00 Ordered 50 mg PO DAILY Metoprolol Tartrate Med 08/18/18 21:00 Ordered 50 mg PO BID Sodium Chloride 0.9% [Normal Saline] 1,000 ml Med 08/18/18 12:15 Active IV ASDIRECTED Sodium Chloride 0.9% [Saline Flush] Med 08/18/18 09:06 Active 10 ml FLUSH ASDIRECTED PRN Sodium Chloride 0.9% [Saline Flush] Med 08/18/18 09:06 Active 2.5 ml FLUSH ASDIRECTED PRN cycloSPORINE [Restasis Multidose] Med 08/18/18 21:00 Ordered 1 drop EYEBOTH BID hydroCHLOROthiazide Med 08/19/18 09:00 Ordered 25 mg PO DAILY Saline Lock Insert [OM.PC] Stat Oth 08/18/18 09:05 Ordered Sequential Compression Device [OM.PC] Per Unit Routine Oth 08/18/18 13:25 Ordered Resuscitation Status Routine Resus Stat 08/18/18 13:24 Ordered Medication Orders Aspirin (Aspirin) 325 mg PO DAILY ERNA Clopidogrel Bisulfate (Plavix) 75 mg PO DAILY ERNA Hydrochlorothiazide (Hydrochlorothiazide) 25 mg PO DAILY ERNA Sodium Chloride (Normal Saline) 1,000 mls @ 125 mls/hr IV ASDIRECTED ERNA Last Admin: 08/18/18 12:20 Dose: 125 mls/hr Isosorbide Mononitrate (Imdur) 60 mg PO DAILY ERNA Losartan Potassium (Cozaar) 50 mg PO DAILY ERNA Non-Formulary Medication (Cyclosporine [Restasis Multidose]) 1 drop EYEBOTH BID ERNA Non-Formulary Medication (Metoprolol Tartrate) 50 mg PO BID ERNA Sodium Chloride (Saline Flush) 10 ml FLUSH ASDIRECTED PRN PRN Reason: Keep Vein Open Sodium Chloride (Saline Flush) 2.5 ml FLUSH ASDIRECTED PRN PRN Reason: Keep Vein Open Assessment/Plan Comment:: 77 yo female admitted for chest pain. She ruled out for acute coronary syndrome with serial negative cardiac enzymes. I suspect her shoulder pain is likely musculoskeletal. She was discharged home and is to follow up with Dr. Newell.
[2018-08-18] MEDS: Acetaminophen 325 MG Tab PO PRN ×2 (15:19→20:23)
[2018-08-18] MEDS: CYCLOSPORINE EYEBOTH SCH (20:26)
[2018-08-18] MEDS ORDERED: Metoprolol Tartrate 50 MG Tab PO SCH (21:00)
[2018-08-18] MEDS: traMADol 50 MG Tab PO PRN (21:56)
[2018-08-19] MEDS: Acetaminophen 325 MG Tab PO PRN ×2 (04:09→11:46)
[2018-08-19] MEDS ORDERED: Ondansetron 4 MG/2 ML SDV IVPUSH PRN (04:40)
[2018-08-19] MEDS ORDERED: Hydrochlorothiazide 25 MG Tab PO SCH (09:00)
[2018-08-19] MEDS ORDERED: Metoprolol Tartrate 50 MG Tab PO SCH (09:00)
[2018-08-19] MEDS ORDERED: Clopidogrel 75 MG Tab PO SCH (09:00)
[2018-08-19] MEDS ORDERED: Losartan 50 MG Tab PO SCH ×2 (09:00)
[2018-08-19] MEDS ORDERED: Aspirin 325 MG Tab.EC PO SCH (09:00)
[2018-08-19] MEDS ORDERED: Isosorbide Mononitrate 60 MG Tab.ER PO SCH ×2 (09:00)
[2018-08-19] MEDS: CYCLOSPORINE EYEBOTH SCH (09:06)
[2018-08-19] MEDS: traMADol 50 MG Tab PO PRN (09:59)
[2018-08-19 12:05] VITALS: BP 143/66
== END 2018-08-19 13:20 | disposition home or self-care (01) ==
LOC: MW.ED 08:55 → MW.MS 11:43
PROVIDERS: ADMIT Internal Medicine; ATTEND Internal Medicine
DX: R07.89 Other chest pain (principal); I25.10 Atherosclerotic heart disease of native coronary artery without angina pectoris; I10 Essential (primary) hypertension; E78.00 Pure hypercholesterolemia, unspecified; J44.9 Chronic obstructive pulmonary disease, unspecified; G47.33 Obstructive sleep apnea (adult) (pediatric); K21.9 Gastro-esophageal reflux disease without esophagitis; M19.90 Unspecified osteoarthritis, unspecified site; Z88.1 Allergy status to other antibiotic agents; Z88.8 Allergy status to other drugs, medicaments and biological substances; Z91.09 Other allergy status, other than to drugs and biological substances; Z79.82 Long term (current) use of aspirin; Z79.02 Long term (current) use of antithrombotics/antiplatelets; Z79.899 Other long term (current) drug therapy; Z98.890 Other specified postprocedural states; Z99.89 Dependence on other enabling machines and devices; Z95.5 Presence of coronary angioplasty implant and graft
CPT/HCPCS: 36415; 71045; 71275; 80053; 84484; 85025; 85379; 85610; 93005; 96361; 96374; 96375; 96376; 99285; A9270; C9113; G0378; J2270; J2405; J7040; Q9967

== ENCOUNTER 2020-09-08 21:39 | Emergency (ER) | payer MEDICARE, OTHER ==
[2020-09-08] MEDS ORDERED: Acetaminophen 325 MG Tab PO ONE (22:26)
--- NOTE | 2020-09-08 22:26 | EDM.PDOC ---
ED HPI GENERAL MEDICAL PROBLEM - General Chief Complaint: Genitourinary Problem Stated Complaint: POSSIBLE KIDNEY INFECTION Time Seen by Provider: 09/08/20 22:10 Source of Information: Reports: Patient History Limitations: Reports: No Limitations - History of Present Illness INITIAL COMMENTS - FREE TEXT/NARRATIVE: Patient is a 79-year-old female presents today for bilateral flank pain. Patient states that the pain started around 5 pm. She states that she has been having increased urination and she saw some blood clots in the urine as well. Denies any fevers but did have some chills. Denies any nausea or vomiting states been able tolerate liquids most of the day. Has history of leukemia and oncologist in [place]. Lower Back Pain Score (Numeric/FACES): 10 - Related Data Allergies Allergy/AdvReac Type Severity Reaction Status Date / Time atorvastatin calcium Allergy Unknown Verified 08/18/18 13:23 [From Lipitor] clarithromycin Allergy Unknown Verified 08/18/18 13:23 gabapentin [From Neurontin] Allergy Unknown Verified 08/18/18 13:23 ibuprofen Allergy Unknown Verified 08/18/18 13:23 levetiracetam [From Keppra] Allergy Nausea and Verified 08/18/18 13:23 Vomiting pitavastatin calcium Allergy Nausea and Verified 08/18/18 13:23 [From Livalo] Vomiting pravastatin Allergy Nausea and Verified 08/18/18 13:23 Vomiting pregabalin [From Lyrica] Allergy Unknown Verified 08/18/18 13:23 rosuvastatin calcium Allergy Unknown Verified 08/18/18 13:23 [From Crestor] "All antibiotics" Allergy Unknown Other Uncoded 08/18/18 13:23 keppra Allergy Nausea and Uncoded 08/18/18 13:23 Vomiting tape Allergy Rash Uncoded 08/18/18 13:23 Home Meds: Home Meds Clopidogrel [Plavix] 75 mg PO DAILY 09/09/14 [History] Isosorbide Mononitrate [Isosorbide Mononitrate ER] 60 mg PO DAILY 09/09/14 [History] hydroCHLOROthiazide [Hydrochlorothiazide] 25 mg PO DAILY 09/09/14 [History] Aspirin [Halfprin] 81 mg PO DAILY 10/11/14 [History] Losartan [Cozaar] 50 mg PO DAILY 10/11/14 [History] Aspirin 325 mg PO DAILY 06/23/17 [History] Nitroglycerin [Nitrostat] 0.4 mg SL .EVERY 5 MINUTES PRN MDD 3 TABLETS 06/23/17 [History] cycloSPORINE [Restasis Multidose] 1 drop EYEBOTH BID 06/23/17 [History] Metoprolol Tartrate 50 mg PO BID 08/18/18 [History] amLODIPine [Norvasc] 5 mg PO DAILY 08/18/18 [History] traMADol [Ultram] 100 mg PO ASDIRECTED PRN 08/18/18 [History] Past Medical History HEENT History: Reports: Other (See Below) Other HEENT History: dry eyes Cardiovascular History: Reports: High Cholesterol, Hypertension, Stents Respiratory History: Reports: COPD Gastrointestinal History: Reports: GERD Genitourinary History: Reports: UTI, Recurrent 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: Musculoskeletal History: Reports: Arthritis Neurological History: Reports: Migraines Psychiatric History: Reports: None Endocrine/Metabolic History: Reports: None Hematologic History: Reports: None Immunologic History: Reports: None Oncologic (Cancer) History: Reports: None Dermatologic History: Reports: Eczema - Infectious Disease History Infectious Disease History: Reports: C-Difficile, Chicken Pox, Shingles - Past Surgical History Head Surgeries/Procedures: Reports: None HEENT Surgical History: Reports: Cataract Surgery Cardiovascular Surgical History: Reports: None Other Cardiovascular Surgeries/Procedures: " 6 stents, 4 ballons" Respiratory Surgical History: Reports: None GI Surgical History: Reports: Appendectomy, Cholecystectomy Female Surgical History: Reports: None Endocrine Surgical History: Reports: None Neurological Surgical History: Reports: None Musculoskeletal Surgical History: Reports: Knee Replacement, Other (See Below) Other Musculoskeletal Surgeries/Procedures:: bilateral Oncologic Surgical History: Reports: None Dermatological Surgical History: Reports: None Social & Family History - Family History Family Medical History: No Pertinent Family History - Tobacco Use Tobacco Use Status *Q: Never Tobacco User - Caffeine Use Caffeine Use: Reports: None Caffeine Use Comment: occasional - Recreational Drug Use Recreational Drug Use: No ED ROS GENERAL - Review of Systems Review Of Systems: See Below Constitutional: Reports: No Symptoms HEENT: Reports: No Symptoms Respiratory: Reports: No Symptoms Cardiovascular: Reports: No Symptoms Endocrine: Reports: No Symptoms GI/Abdominal: Reports: No Symptoms : Reports: Flank Pain, Hematuria Musculoskeletal: Reports: No Symptoms Skin: Reports: No Symptoms Neurological: Reports: No Symptoms Psychiatric: Reports: No Symptoms Hematologic/Lymphatic: Reports: No Symptoms Immunologic: Reports: No Symptoms ED EXAM, RENAL/ - Physical Exam Exam: See Below Exam Limited By: No Limitations General Appearance: Alert, WD/WN, No Apparent Distress Eye Exam: Bilateral Eye: EOMI, PERRL Respiratory/Chest: No Respiratory Distress, Lungs Clear, Normal Breath Sounds Cardiovascular: Normal Peripheral Pulses, Regular Rate, Rhythm GI/Abdominal: Normal Bowel Sounds, Soft, Non-Tender Back Exam: CVA Tenderness (L), CVA Tenderness (R) Extremities: Normal Inspection, Normal Range of Motion Neurological: Alert, Oriented Course - Vital Signs Last Recorded V/S: Last Vital Signs Temp 99.3 F 09/08/20 22:07 Pulse 88 09/08/20 23:12 Resp 16 09/08/20 23:12 BP 125/53 L 09/08/20 23:12 Pulse Ox 95 09/08/20 23:12 - Orders/Labs/Meds Labs: Laboratory Tests 09/08/20 09/08/20 09/08/20 Range/Units 22:14 22:35 22:35 WBC 10.03 (4.0-11.0) K/uL RBC 4.54 (4.30-5.90) M/uL Hgb 13.0 (12.0-16.0) g/dL Hct 38.4 (36.0-46.0) % MCV 84.6 (80.0-98.0) fL MCH 28.6 (27.0-32.0) pg MCHC 33.9 (31.0-37.0) g/dL RDW Std Deviation 44.1 (28.0-62.0) fl RDW Coeff of Raj 14 (11.0-15.0) % Plt Count 157 (150-400) K/uL MPV 10.40 (7.40-12.00) fL Neut % (Auto) 74.9 (48.0-80.0) % Lymph % (Auto) 13.0 L (16.0-40.0) % [place] % (Auto) 9.8 (0.0-15.0) % Eos % (Auto) 2.0 (0.0-7.0) % Baso % (Auto) 0.3 (0.0-1.5) % Neut # (Auto) 7.5 H (1.4-5.7) K/uL Lymph # (Auto) 1.3 (0.6-2.4) K/uL [place] # (Auto) 1.0 H (0.0-0.8) K/uL Eos # (Auto) 0.2 (0.0-0.7) K/uL Baso # (Auto) 0.0 (0.0-0.1) K/uL Nucleated RBC % 0.0 /100WBC Nucleated RBCs # 0 K/uL INR 0.98 APTT 19.7 (18.6-31.3) SEC Sodium (136-145) mmol/L Potassium (3.5-5.1) mmol/L Chloride (98-107) mmol/L Carbon Dioxide (21.0-32.0) mmol/L BUN (7.0-18.0) mg/dL Creatinine (0.6-1.0) mg/dL Est Cr Clr Drug Dosing mL/min Estimated GFR (MDRD) ml/min Glucose (74-106) mg/dL Calcium (8.5-10.1) mg/dL Total Bilirubin (0.2-1.0) mg/dL AST (15-37) IU/L ALT (14-63) IU/L Alkaline Phosphatase (46-116) U/L Total Protein (6.4-8.2) g/dL Albumin (3.4-5.0) g/dL Globulin (2.6-4.0) g/dL Albumin/Globulin Ratio (0.9-1.6) Urine Color YELLOW Urine Appearance CLOUDY Urine pH 6.0 (5.0-8.0) Ur Specific [place] 1.025 (1.001-1.035) Urine Protein 100 H (NEGATIVE) mg/dL Urine Glucose (UA) NEGATIVE (NEGATIVE) mg/dL Urine Ketones NEGATIVE (NEGATIVE) mg/dL Urine Occult Blood LARGE H (NEGATIVE) Urine Nitrite POSITIVE H (NEGATIVE) Urine Bilirubin SMALL H (NEGATIVE) Urine Ictotest NEGATIVE Urine Urobilinogen 1.0 (<2.0) EU/dL Ur Leukocyte Esterase MODERATE H (NEGATIVE) Urine RBC TOO NUMEROUS TO CT H (0-2/HPF) Urine WBC TO NUMEROUS TO COUNT H (0-5/HPF) Ur Epithelial Cells FEW (NONE-FEW) Urine Bacteria 3+ H (NEGATIVE) Urinalysis Comment 09/08/20 Range/Units 22:35 WBC (4.0-11.0) K/uL RBC (4.30-5.90) M/uL Hgb (12.0-16.0) g/dL Hct (36.0-46.0) % MCV (80.0-98.0) fL MCH (27.0-32.0) pg MCHC (31.0-37.0) g/dL RDW Std Deviation (28.0-62.0) fl RDW Coeff of Raj (11.0-15.0) % Plt Count (150-400) K/uL MPV (7.40-12.00) fL Neut % (Auto) (48.0-80.0) % Lymph % (Auto) (16.0-40.0) % [place] % (Auto) (0.0-15.0) % Eos % (Auto) (0.0-7.0) % Baso % (Auto) (0.0-1.5) % Neut # (Auto) (1.4-5.7) K/uL Lymph # (Auto) (0.6-2.4) K/uL [place] # (Auto) (0.0-0.8) K/uL Eos # (Auto) (0.0-0.7) K/uL Baso # (Auto) (0.0-0.1) K/uL Nucleated RBC % /100WBC Nucleated RBCs # K/uL INR APTT (18.6-31.3) SEC Sodium 136 (136-145) mmol/L Potassium 4.1 (3.5-5.1) mmol/L Chloride 102 (98-107) mmol/L Carbon Dioxide 25.4 (21.0-32.0) mmol/L BUN 22 H (7.0-18.0) mg/dL Creatinine 1.0 (0.6-1.0) mg/dL Est Cr Clr Drug Dosing 41.05 mL/min Estimated GFR (MDRD) 53.5 ml/min Glucose 109 H (74-106) mg/dL Calcium 9.0 (8.5-10.1) mg/dL Total Bilirubin 0.5 (0.2-1.0) mg/dL AST 19 (15-37) IU/L ALT 26 (14-63) IU/L Alkaline Phosphatase 88 (46-116) U/L Total Protein 6.9 (6.4-8.2) g/dL Albumin 3.7 (3.4-5.0) g/dL Globulin 3.2 (2.6-4.0) g/dL Albumin/Globulin Ratio 1.2 (0.9-1.6) Urine Color Urine Appearance Urine pH (5.0-8.0) Ur Specific [place] (1.001-1.035) Urine Protein (NEGATIVE) mg/dL Urine Glucose (UA) (NEGATIVE) mg/dL Urine Ketones (NEGATIVE) mg/dL Urine Occult Blood (NEGATIVE) Urine Nitrite (NEGATIVE) Urine Bilirubin (NEGATIVE) Urine Ictotest Urine Urobilinogen (<2.0) EU/dL Ur Leukocyte Esterase (NEGATIVE) Urine RBC (0-2/HPF) Urine WBC (0-5/HPF) Ur Epithelial Cells (NONE-FEW) Urine Bacteria (NEGATIVE) Urinalysis Comment Meds: Medications Discontinued Medications Generic Name Dose Route Start Last Admin Trade Name Surjit PRN Reason Stop Dose Admin Acetaminophen 650 mg 09/08/20 22:26 09/08/20 22:31 Acetaminophen 325 Mg Tab PO 09/08/20 22:27 650 mg NOW ONE Administration Ceftriaxone Sodium 1 gm 09/08/20 23:19 09/08/20 23:53 Ceftriaxone 1 Gm Vial IVPUSH 09/08/20 23:20 1 gm ONETIME ONE Administration Diphenhydramine HCl 12.5 mg 09/08/20 23:58 09/09/20 00:10 Diphenhydramine 50 Mg/Ml Sdv IVPUSH 09/08/20 23:59 12.5 mg ONETIME ONE Administration Ketorolac Tromethamine 15 mg 09/08/20 23:58 09/09/20 00:11 Ketorolac 30 Mg/Ml Sdv IVPUSH 09/08/20 23:59 15 mg ONETIME ONE Administration - Re-Assessments/Exams Free Text/Narrative Re-Assessment/Exam: 09/09/20 00:25 Patient has a UTI. Patient was given IV ceftriaxone here. Patient is refusing to take p.o. antibiotics that she recurrently gets C. difficile. I told patient I am here tomorrow and I can give her another dose of IV meds however I would not be here Friday. She states that normally she goes to her PMD who gives her the IV antibiotics and can try to set him up on Friday. Patient understands risk not taking antibiotics for UTI. Departure - Departure Time of Disposition: 00:25 Disposition: Home, Self-Care 01 Condition: Good Clinical Impression: UTI (urinary tract infection) - Discharge Information *PRESCRIPTION DRUG MONITORING PROGRAM REVIEWED*: Not Applicable *COPY OF PRESCRIPTION DRUG MONITORING REPORT IN PATIENT ZENAIDA: Not Applicable Instructions: Urinary Tract Infection, Adult Referrals: Bart Crowe MD [Primary Care Provider] - Forms: ED Department Discharge Additional Instructions: The following information is given to patients seen in the emergency department who are being discharged to home. This information is to outline your options f or follow-up care. We provide all patients seen in our emergency department with a follow-up referral. The need for follow-up, as well as the timing and circumstances, are variable depending upon the specifics of your emergency department visit. If you don't have a primary care physician on staff, we will provide you with a referral. We always advise you to contact your personal physician following an emergency department visit to inform them of the circumstance of the visit and for follow-up with them and/or the need for any referrals to a consulting specialist. The emergency department will also refer you to a specialist when appropriate. This referral assures that you have the opportunity for follow-up care with a specialist. All of these measure are taken in an effort to provide you with optimal care, which includes your follow-up. Under all circumstances we always encourage you to contact your private physician who remains a resource for coordinating your care. When calling for follow-up care, please make the office aware that this follow-up is from your recent emergency room visit. If for any reason you are refused follow-up, please contact the [facility] Emergency Department at and asked to speak to the emergency department charge nurse. Please follow up with your primary care physician. If you do not have a primary care physician, see below: [facility] [address] [place] [id number] [facility] [address] [place] [id number] You were seen today for increased urination we did a UA which shows a urinary tract infection we also showed a CAT scan did not show any kidney infection just infection your bladder. 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 I gave you a dose IV tonight and I will be here tomorrow and I can give you another dose of IV antibiotics however I am not sure if the next doctor Friday will also be able to give you those antibiotics. He states you can talk to your primary doctor who can hopefully set you up with some IV antibiotics on Friday. If you have any other external signs symptoms please return to the ED. Sepsis Event Note (ED) - Evaluation Sepsis Screening Result: No Definite Risk - Focused Exam Vital Signs: Vital Signs Temp Pulse Resp BP Pulse Ox 09/08/20 23:12 88 16 125/53 L 95 09/08/20 22:07 99.3 F 101 H 19 173/84 H 94 L - Assessment/Plan Plan: Patient 70-year-old female presents today for blood clots in the urine and bilateral flank pain. Could be possible kidney stones but also rule out any intra-abdominal masses due to the blood and clots in her urine. Will obtain labs UA and possible CT scan.
[2020-09-08 23:05] LABS: CARBON DIOXIDE,CO2 25.4 mmol/L (21.0-32.0); POTASSIUM,K 4.1 mmol/L (3.5-5.1)
[2020-09-08] MEDS ORDERED: cefTRIAXone 1 GM Vial IVPUSH ONE (23:19)
[2020-09-08] MEDS ORDERED: diphenhydrAMINE 50 MG/ML SDV IVPUSH ONE (23:58)
[2020-09-08] MEDS ORDERED: Ketorolac 30 MG/ML SDV IVPUSH ONE (23:58)
--- NOTE | 2020-09-09 00:05 | CT ---
For Patients: As a result of the Century Cures Act, medical imaging exams and procedure reports are released immediately into your electronic medical record. You may view this report before your referring provider. If you have questions, please contact your health care provider. INDICATION: Bilateral flank pain with hematuria. History of leukemia TECHNIQUE: CT Abdomen and pelvis without i.v. contrast. Coronal and sagittal reformats were obtained. COMPARISON: None FINDINGS: Lower chest: Mild bibasilar peribronchial pulmonary fibrosis is noted. Liver: Unremarkable. Spleen: Unremarkable. Pancreas: Unremarkable. Gallbladder: Previous cholecystectomy noted without significant intra- or extrahepatic biliary ductal dilatation seen. Kidney: Unremarkable. No kidney or ureteral stones or obstruction seen. Adrenal: Unremarkable. Bowel: Unremarkable. The appendix is not identified. Vascular: Unremarkable. Lymph: Unremarkable. Peritoneum: Unremarkable. No pneumoperitoneum is seen. No significant ascites is noted. Pelvis: Mild diffuse bladder wall thickening is suspected but difficult to evaluate due to the decompressed state of the bladder. Soft tissue: Unremarkable. Bone: Moderate dextroscoliosis is noted with associated facet arthritis and degenerative disc disease. IMPRESSION: 1. Mild diffuse bladder wall thickening is suspected but difficult to evaluate due to the decompressed state of the bladder. This may be due to urinary tract infection or cystitis. Dictated by Kristofer Yanez MD @ 09/09/2020 12:03:56 AM Please note that all CT scans at this facility use dose modulation, iterative reconstruction, and/or weight-based dosing when appropriate to reduce radiation dose to as low as reasonably achievable. Dictated by: Kristofer Yanez MD @ 09/09/2020 00:04:14 (Electronically Signed)
[2020-09-09 00:46] VITALS: BP 121/33; PULSE 82
== END 2020-09-09 00:46 | disposition home or self-care (01) ==
LOC: MW.ED 21:39
DX: N39.0 Urinary tract infection, site not specified (principal); E78.00 Pure hypercholesterolemia, unspecified; I10 Essential (primary) hypertension; J44.9 Chronic obstructive pulmonary disease, unspecified; Z91.048 Other nonmedicinal substance allergy status; Z79.82 Long term (current) use of aspirin; Z79.02 Long term (current) use of antithrombotics/antiplatelets; Z88.1 Allergy status to other antibiotic agents; Z88.5 Allergy status to narcotic agent; Z88.8 Allergy status to other drugs, medicaments and biological substances; Z95.5 Presence of coronary angioplasty implant and graft
CPT/HCPCS: 36415; 74176; 80053; 81001; 85025; 85610; 85730; 96374; 96375; 99284; A9270; J0696; J1200; J1885

== ENCOUNTER 2020-09-09 22:31 | Emergency (ER) | payer MEDICARE, OTHER ==
[2020-09-09] MEDS ORDERED: cefTRIAXone 1 GM Vial IVPUSH ONE (22:37)
--- NOTE | 2020-09-09 23:12 | EDM.PDOC ---
ED HPI GENERAL MEDICAL PROBLEM - General Chief Complaint: Medication Administration Stated Complaint: SECOND INJECTION Time Seen by Provider: 09/09/20 23:10 Source of Information: Reports: Patient History Limitations: Reports: No Limitations - History of Present Illness INITIAL COMMENTS - FREE TEXT/NARRATIVE: Patient 79-year-old female who was seen by me yesterday and found to have UTI. Patient states she cannot take oral antibiotics/has had a portance of taking it states that normally her physician gives her IV she goes to the clinic daily since is the weekend and she cannot go to the clinic I told her I would try to give her antibiotics today and she agreed to come back. She is here to have her ceftriaxone and will be discharged home at the [facility]. Patient has no new complaints. - Related Data Allergies Allergy/AdvReac Type Severity Reaction Status Date / Time atorvastatin calcium Allergy Unknown Verified 09/09/20 23:26 [From Lipitor] clarithromycin Allergy Unknown Verified 09/09/20 23:26 gabapentin [From Neurontin] Allergy Unknown Verified 09/09/20 23:26 ibuprofen Allergy Unknown Verified 09/09/20 23:26 levetiracetam [From Keppra] Allergy Nausea and Verified 09/09/20 23:26 Vomiting pitavastatin calcium Allergy Nausea and Verified 09/09/20 23:26 [From Livalo] Vomiting pravastatin Allergy Nausea and Verified 09/09/20 23:26 Vomiting pregabalin [From Lyrica] Allergy Unknown Verified 09/09/20 23:26 rosuvastatin calcium Allergy Unknown Verified 09/09/20 23:26 [From Crestor] "All antibiotics" Allergy Unknown Other Uncoded 09/09/20 23:26 keppra Allergy Nausea and Uncoded 08/18/18 13:23 Vomiting tape Allergy Rash Uncoded 08/18/18 13:23 Home Meds: Home Meds Clopidogrel [Plavix] 75 mg PO DAILY 09/09/14 [History] Isosorbide Mononitrate [Isosorbide Mononitrate ER] 60 mg PO DAILY 09/09/14 [History] hydroCHLOROthiazide [Hydrochlorothiazide] 25 mg PO DAILY 09/09/14 [History] Aspirin [Halfprin] 81 mg PO DAILY 10/11/14 [History] Losartan [Cozaar] 50 mg PO DAILY 10/11/14 [History] Aspirin 325 mg PO DAILY 06/23/17 [History] Nitroglycerin [Nitrostat] 0.4 mg SL .EVERY 5 MINUTES PRN MDD 3 TABLETS 06/23/17 [History] cycloSPORINE [Restasis Multidose] 1 drop EYEBOTH BID 06/23/17 [History] Metoprolol Tartrate 50 mg PO BID 08/18/18 [History] amLODIPine [Norvasc] 5 mg PO DAILY 08/18/18 [History] traMADol [Ultram] 100 mg PO ASDIRECTED PRN 08/18/18 [History] Past Medical History HEENT History: Reports: Other (See Below) Other HEENT History: dry eyes Cardiovascular History: Reports: High Cholesterol, Hypertension, Stents Respiratory History: Reports: COPD Gastrointestinal History: Reports: GERD Genitourinary History: Reports: UTI, Recurrent [employer]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: Musculoskeletal History: Reports: Arthritis Neurological History: Reports: Migraines Psychiatric History: Reports: None Endocrine/Metabolic History: Reports: None Hematologic History: Reports: None Immunologic History: Reports: None Oncologic (Cancer) History: Reports: None Dermatologic History: Reports: Eczema - Infectious Disease History Infectious Disease History: Reports: C-Difficile, Chicken Pox, Shingles - Past Surgical History Head Surgeries/Procedures: Reports: None HEENT Surgical History: Reports: Cataract Surgery Cardiovascular Surgical History: Reports: None Other Cardiovascular Surgeries/Procedures: " 6 stents, 4 ballons" Respiratory Surgical History: Reports: None GI Surgical History: Reports: Appendectomy, Cholecystectomy Female Surgical History: Reports: None Endocrine Surgical History: Reports: None Neurological Surgical History: Reports: None Musculoskeletal Surgical History: Reports: Knee Replacement, Other (See Below) Other Musculoskeletal Surgeries/Procedures:: bilateral Oncologic Surgical History: Reports: None Dermatological Surgical History: Reports: None Social & Family History - Family History Family Medical History: No Pertinent Family History - Caffeine Use Caffeine Use: Reports: None Caffeine Use Comment: occasional ED ROS GENERAL - Review of Systems Review Of Systems: See Below Constitutional: Reports: No Symptoms HEENT: Reports: No Symptoms Respiratory: Reports: No Symptoms Cardiovascular: Reports: No Symptoms Endocrine: Reports: No Symptoms GI/Abdominal: Reports: No Symptoms : Reports: No Symptoms Musculoskeletal: Reports: No Symptoms Skin: Reports: No Symptoms Neurological: Reports: No Symptoms Psychiatric: Reports: No Symptoms Hematologic/Lymphatic: Reports: No Symptoms Immunologic: Reports: No Symptoms ED EXAM, GENERAL - Physical Exam Exam: See Below Exam Limited By: No Limitations General Appearance: Alert, WD/WN, No Apparent Distress Course - Vital Signs Last Recorded V/S: Last Vital Signs Temp 97.8 F 09/09/20 23:26 Pulse 73 09/09/20 23:26 Resp 17 09/09/20 23:26 BP 147/48 H 09/09/20 23:26 Pulse Ox 97 09/09/20 23:26 - Orders/Labs/Meds Meds: Medications Discontinued Medications Generic Name Dose Route Start Last Admin Trade Name Surjit PRN Reason Stop Dose Admin Ceftriaxone Sodium 1 gm 09/09/20 22:37 Ceftriaxone 1 Gm Vial IVPUSH 09/09/20 22:38 ONETIME ONE - Re-Assessments/Exams Free Text/Narrative Re-Assessment/Exam: 09/09/20 23:40 Was given the ceftriaxone IV here we spoke to patient states that I am not sure she will be admitted tomorrow so not be here to give it to her. She is to follow her primary care physician to have the antibiotics. Departure - Departure Time of Disposition: 23:41 Disposition: Home, Self-Care 01 Condition: Good Clinical Impression: Medication administered - Discharge Information *PRESCRIPTION DRUG MONITORING PROGRAM REVIEWED*: Not Applicable *COPY OF PRESCRIPTION DRUG MONITORING REPORT IN PATIENT ZENAIDA: Not Applicable Referrals: Bart Crowe MD [Primary Care Provider] - Forms: ED Department Discharge Additional Instructions: The following information is given to patients seen in the emergency department who are being discharged to home. This information is to outline your options for follow-up care. We provide all patients seen in our emergency department with a follow-up referral. The need for follow-up, as well as the timing and circumstances, are variable depending upon the specifics of your emergency department visit. If you don't have a primary care physician on staff, we will provide you with a referral. We always advise you to contact your personal physician following an emergency department visit to inform them of the circumstance of the visit and for follow-up with them and/or the need for any referrals to a consulting specialist. The emergency department will also refer you to a specialist when appropriate. This referral assures that you have the opportunity for follow-up care with a specialist. All of these measure are taken in an effort to provide you with optimal care, which includes your follow-up. Under all circumstances we always encourage you to contact your private physician who remains a resource for coordinating your care. When calling for follow-up care, please make the office aware that this follow-up is from your recent emergency room visit. If for any reason you are refused follow-up, please contact the [facility] Emergency Department at and asked to speak to the emergency department charge nurse. Please follow up with your primary care physician. If you do not have a primary care physician, see below: [facility] [address] [place] [phone] My [facility] [address] [place] [address] Your seen today for antibiotics since he cannot take oral antibiotics. We gave you a dose and we recommended you to follow your primary care physician to continue the antibiotics. Sepsis Event Note (ED) - Focused Exam Vital Signs: Vital Signs Temp Pulse Resp BP Pulse Ox 09/09/20 23:26 97.8 F 73 17 147/48 H 97 - Assessment/Plan Plan: Patient is a 79-year-old female presents today just to have her antibiotics given that she cannot take oral since she recurrently gets C. difficile. I agreed to give her the ceftriaxone today and that she can see her PMD. Patient has no complaints.
[2020-09-10 00:06] VITALS: BP 134/51; PULSE 68
== END 2020-09-10 00:06 | disposition home or self-care (01) ==
LOC: MW.ED 22:31
DX: N39.0 Urinary tract infection, site not specified (principal); I10 Essential (primary) hypertension; J44.9 Chronic obstructive pulmonary disease, unspecified; M19.90 Unspecified osteoarthritis, unspecified site; Z88.8 Allergy status to other drugs, medicaments and biological substances; Z88.1 Allergy status to other antibiotic agents; Z88.6 Allergy status to analgesic agent; Z91.048 Other nonmedicinal substance allergy status; Z79.82 Long term (current) use of aspirin; Z79.02 Long term (current) use of antithrombotics/antiplatelets; Z79.899 Other long term (current) drug therapy
CPT/HCPCS: 96374; 99281; J0696; J1642

== ENCOUNTER 2020-09-10 22:25 | Emergency (ER) | payer MEDICARE, OTHER ==
[2020-09-10] MEDS ORDERED: cefTRIAXone 1 GM in Premix Bag 1 BAG IV ONE (22:28)
--- NOTE | 2020-09-10 22:28 | EDM.PDOC ---
ED HPI GENERAL MEDICAL PROBLEM - General Stated Complaint: FOLLOW UP SHOT Time Seen by Provider: 09/10/20 22:26 Source of Information: Reports: Patient History Limitations: Reports: No Limitations - History of Present Illness INITIAL COMMENTS - FREE TEXT/NARRATIVE: 79-year-old female presents for antibiotic infusion. Please see previous provider note for more details. Patient was diagnosed with urinary tract infection and clams allergy to p.o. antibiotics. She is here for third and final dose of rocephin. She has no new complaints. - Related Data Allergies Allergy/AdvReac Type Severity Reaction Status Date / Time atorvastatin calcium Allergy Unknown Verified 09/10/20 23:25 [From Lipitor] clarithromycin Allergy Unknown Verified 09/10/20 23:25 gabapentin [From Neurontin] Allergy Unknown Verified 09/10/20 23:25 ibuprofen Allergy Unknown Verified 09/10/20 23:25 levetiracetam [From Keppra] Allergy Nausea and Verified 09/10/20 23:25 Vomiting pitavastatin calcium Allergy Nausea and Verified 09/10/20 23:25 [From Livalo] Vomiting pravastatin Allergy Nausea and Verified 09/10/20 23:25 Vomiting pregabalin [From Lyrica] Allergy Unknown Verified 09/10/20 23:25 rosuvastatin calcium Allergy Unknown Verified 09/10/20 23:25 [From Crestor] "All antibiotics" Allergy Unknown Other Uncoded 09/10/20 23:25 keppra Allergy Nausea and Uncoded 08/18/18 13:23 Vomiting tape Allergy Rash Uncoded 08/18/18 13:23 Home Meds: Home Meds Clopidogrel [Plavix] 75 mg PO DAILY 09/09/14 [History] Isosorbide Mononitrate [Isosorbide Mononitrate ER] 60 mg PO DAILY 09/09/14 [History] hydroCHLOROthiazide [Hydrochlorothiazide] 25 mg PO DAILY 09/09/14 [History] Aspirin [Halfprin] 81 mg PO DAILY 10/11/14 [History] Losartan [Cozaar] 50 mg PO DAILY 10/11/14 [History] Aspirin 325 mg PO DAILY 06/23/17 [History] Nitroglycerin [Nitrostat] 0.4 mg SL .EVERY 5 MINUTES PRN MDD 3 TABLETS 06/23/17 [History] cycloSPORINE [Restasis Multidose] 1 drop EYEBOTH BID 06/23/17 [History] Metoprolol Tartrate 50 mg PO BID 08/18/18 [History] amLODIPine [Norvasc] 5 mg PO DAILY 08/18/18 [History] traMADol [Ultram] 100 mg PO ASDIRECTED PRN 08/18/18 [History] Past Medical History HEENT History: Reports: Other (See Below) Other HEENT History: dry eyes Cardiovascular History: Reports: High Cholesterol, Hypertension, Stents Respiratory History: Reports: COPD Gastrointestinal History: Reports: GERD Genitourinary History: Reports: UTI, 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: Musculoskeletal History: Reports: Arthritis Neurological History: Reports: Migraines Psychiatric History: Reports: None Endocrine/Metabolic History: Reports: None Hematologic History: Reports: None Immunologic History: Reports: None Oncologic (Cancer) History: Reports: None Dermatologic History: Reports: Eczema - Infectious Disease History Infectious Disease History: Reports: C-Difficile, Chicken Pox, Shingles - Past Surgical History Head Surgeries/Procedures: Reports: None HEENT Surgical History: Reports: Cataract Surgery Cardiovascular Surgical History: Reports: None Other Cardiovascular Surgeries/Procedures: " 6 stents, 4 ballons" Respiratory Surgical History: Reports: None GI Surgical History: Reports: Appendectomy, Cholecystectomy Female Surgical History: Reports: None Endocrine Surgical History: Reports: None Neurological Surgical History: Reports: None Musculoskeletal Surgical History: Reports: Knee Replacement, Other (See Below) Other Musculoskeletal Surgeries/Procedures:: bilateral Oncologic Surgical History: Reports: None Dermatological Surgical History: Reports: None Social & Family History - Family History Family Medical History: No Pertinent Family History - Caffeine Use Caffeine Use: Reports: None Caffeine Use Comment: occasional ED ROS GENERAL - Review of Systems Review Of Systems: Comprehensive ROS is negative, except as noted in HPI. ED EXAM, GENERAL - Physical Exam Exam: See Below Exam Limited By: No Limitations General Appearance: Alert, WD/WN, No Apparent Distress Ears: Hearing Grossly Normal Throat/Mouth: Normal Voice, No Airway Compromise Head: Atraumatic, Normocephalic Neck: Normal Inspection Respiratory/Chest: No Respiratory Distress, No Accessory Muscle Use Cardiovascular: Normal Peripheral Pulses GI/Abdominal: Soft, Non-Tender Extremities: Normal Inspection Neurological: Alert, Normal Cognition, Normal Gait Psychiatric: Normal Affect, Normal Mood Skin Exam: Warm, Dry, Intact, Normal Color Course - Orders/Labs/Meds Orders: Active Orders 24 hr Category Date Time Status Saline Lock Insert [OM.PC] Stat Oth 09/10/20 22:28 Ordered Meds: Medications Discontinued Medications Generic Name Dose Route Start Last Admin Trade Name Surjit PRN Reason Stop Dose Admin Ceftriaxone Sodium/Dextrose 1 50 mls @ 100 mls/hr 09/10/20 22:28 gm/ Premix IV 09/10/20 22:57 ONETIME ONE - Re-Assessments/Exams Free Text/Narrative Re-Assessment/Exam: 09/10/20 23:29 Patient is feeling well and notes that her symptoms are greatly improving. Will give third dose of Rocephin and recommend follow-up with primary care physician. Departure - Departure Time of Disposition: 23:29 Disposition: Home, Self-Care 01 Condition: Good Clinical Impression: UTI (urinary tract infection) Qualifiers: Urinary tract infection type: acute cystitis Hematuria presence: without hematuria Qualified Code(s): N30.00 - Acute cystitis without hematuria - Discharge Information Instructions: Urinary Tract Infection, Adult Additional Instructions: The following information is given to patients seen in the emergency department who are being discharged to home. This information is to outline your options for follow-up care. We provide all patients seen in our emergency department wi th a follow-up referral. The need for follow-up, as well as the timing and circumstances, are variable depending upon the specifics of your emergency department visit. If you don't have a primary care physician on staff, we will provide you with a referral. We always advise you to contact your personal physician following an emergency department visit to inform them of the circumstance of the visit and for follow-up with them and/or the need for any referrals to a consulting specialist. The emergency department will also refer you to a specialist when appropriate. This referral assures that you have the opportunity for follow-up care with a specialist. All of these measure are taken in an effort to provide you with optimal care, which includes your follow-up. Under all circumstances we always encourage you to contact your private physician who remains a resource for coordinating your care. When calling for follow-up care, please make the office aware that this follow-up is from your recent emergency room visit. If for any reason you are refused follow-up, please contact the [facility] Emergency Department at and asked to speak to the emergency department charge nurse. Please follow up with your primary care physician. If you do not have a primary care physician, see below: [facility] [address] [place] [phone] My [facility] [address] [place], [place] [phone] [facility] [address], [place] [address] - My Orders Last 24 Hours: My Active Orders 09/10/20 22:28 Saline Lock Insert [OM.PC] Stat - Assessment/Plan Last 24 Hours: My Active Orders 09/10/20 22:28 Saline Lock Insert [OM.PC] Stat
[2020-09-10 23:29] VITALS: BP 150/61; PULSE 72
== END 2020-09-10 23:45 | disposition home or self-care (01) ==
LOC: MW.ED 22:25
DX: N30.00 Acute cystitis without hematuria (principal); I10 Essential (primary) hypertension; J44.9 Chronic obstructive pulmonary disease, unspecified; M19.90 Unspecified osteoarthritis, unspecified site; Z88.1 Allergy status to other antibiotic agents; Z88.8 Allergy status to other drugs, medicaments and biological substances; Z91.048 Other nonmedicinal substance allergy status; Z79.02 Long term (current) use of antithrombotics/antiplatelets; Z79.82 Long term (current) use of aspirin; Z79.899 Other long term (current) drug therapy
CPT/HCPCS: 96374; 99283; J0696

== ENCOUNTER 2020-09-24 20:18 | Emergency (ER) | payer MEDICARE, OTHER ==
[2020-09-24] MEDS ORDERED: Sodium Chloride 0.9% 2.5 ML Syringe FLUSH PRN (20:46)
[2020-09-24] MEDS ORDERED: Sodium Chloride 0.9% 10 ML Syringe FLUSH PRN (20:46)
[2020-09-24] MEDS ORDERED: Vancomycin 1.5 GM in Dextrose 5% in Water 250 ML IV ONE ×2 (20:46)
[2020-09-24 21:22] LABS: BLOOD UREA NITROGEN,BUN 24 mg/dL (7.0-18.0); CARBON DIOXIDE,CO2 27.6 mmol/L (21.0-32.0); CHLORIDE,CL 104 mmol/L (98-107); GLUCOSE RANDOM 151 mg/dL (74-106); SODIUM,NA 141 mmol/L (136-145)
[2020-09-24] MEDS ORDERED: VANCOmycin 1.5 GM/300 ML 1.5 GM in Premix Bag 1 BAG IV ONE (21:41)
--- NOTE | 2020-09-24 22:00 | CR ---
INDICATION: Shortness of breath. TECHNIQUE: PA and lateral chest radiographs. COMPARISON: 08/18/2018. FINDINGS: Low lung volumes with mild asymmetric right hemidiaphragmatic elevation. Diffuse mild interstitial and patchy opacities, predominating at the lung bases. No pneumothorax or pleural effusion. Normal cardiac size. Right transjugular Port-A-Cath tip overlies the lower SVC. IMPRESSION: Mild widespread pulmonary opacities, as may be seen with chronic interstitial lung disease and/or atypical infection such as COVID-19. Dictated by Jamie Contreras MD @ 09/24/2020 9:59:19 PM Dictated by: Jamie Contreras MD @ 09/24/2020 21:59:23 (Electronically Signed)
[2020-09-24] MEDS ORDERED: Linezolid 600 MG Tab PO STA (22:14)
[2020-09-24] MEDS ORDERED: Sodium Chloride 0.9% 1,000 ML IV SCH (23:00)
[2020-09-24] MEDS ORDERED: Sodium Chloride 0.9% 1,000 ML IV STA (23:02)
--- NOTE | 2020-09-24 23:54 | EDM.PDOC ---
ED HPI GENERAL MEDICAL PROBLEM - General Chief Complaint: Respiratory Problem Stated Complaint: LUNG INFECTIONBERNARDO REFERRAL Time Seen by Provider: 09/24/20 20:32 - History of Present Illness INITIAL COMMENTS - FREE TEXT/NARRATIVE: CHIEF COMPLAINT(S): Sent in by my knockout man HISTORY OF PRESENT ILLNESS: This is a 79-year old woman with a past medical history of Guru Av's macroglobulinemia and leukemia who comes to the emergency department with a chief complaint of "sent in by my knockout man." The patient states that she was diagnosed with leukemia and lymphoma approximately a year ago. She states that she then had Covid in December 2019 and since that time she has been experiencing dyspnea. She states that she discussed this with her oncologist who referred her to a knockout man and after the motor no vaccine she had worsening of her symptoms. She states that she had a bronchoscopy done approximately 4 to 5 days ago and they called her with the results today. She currently denies any fever, chills, chest pain, shortness of breath, abdominal pain, nausea or vomiting. She denies any lower extremity edema. She states that they told her she needed to come in for IV antibiotics. She denies any other symptoms REVIEW OF SYSTEMS: Constitutional: Denies fever, chills. Eyes: Denies eye pain Ears, Nose, Mouth, & Throat: Denies earache Cardiovascular: Denies chest pain Respiratory: Denies shortness of breath Gastrointestinal: Denies Nausea, vomiting, diarrhea, hematochezia. Genitourinary: Denies hematuria Skin:Denies a rash MSK: Denies joint pain Neurological: Denies blurred vision Psychiatric: Denies depression PAST MEDICAL HISTORY: As per history of present illness and as reviewed below otherwise noncontributory. SURGICAL HISTORY: As per history of present illness and as reviewed below otherwise noncontributory. SOCIAL HISTORY: As per history of present illness and as reviewed below otherwise noncontributory. FAMILY HISTORY: As per history of present illness and as reviewed below otherwise noncontributory. EXAMINATION OF ORGAN SYSTEMS/BODY AREAS: Constitutional: Blood pressure was 144/64, rate 91, respiratory rate 19 with an oxygen saturation 95% on room air. Temperature 37.2 orally General: Overall well-appearing woman who is in no acute distress Psychiatric: Appropriate mood and affect. Eyes: No scleral icterus or conjunctival erythema ENMT: Moist mucous membranes. No pharyngeal erythema Cardiovascular: Regular, rate, and rhythm. No gallops, murmurs, or rubs. Bilateral upper extremity pulses symmetric and intact. No peripheral edema. No JVD. Respiratory: Lungs clear to auscultation bilaterally. No wheezes, rales, or rhonchi. Gastrointestinal: Soft, non-tender, non-distended. Normoactive bowel sounds Genitourinary: No suprapubic tenderness Musculoskeletal: Normal range of motion. Skin: No lesions or abrasions. Neurological: Alert, GCS 15 MEDICAL DECISION MAKING AND COURSE IN THE ED WITH INTERPRETATION/REVIEW OF DIAGNOSTIC STUDIES: Is a 79-year-old woman with a past medical history of lymphoma and leukemia who presents to the emergency department after being sent in by her knockout man who is currently asymptomatic with normal vital signs. At this time we did review what the knockout man had sent her in for. Apparently she had a bronchoscopy which did show strep pneumonia but given the patient's antibiotic allergies he sent her in for treatment given that he did not have a good outpatient therapy. The patient states that she is allergic to every antibiotic as they cause C. difficile after 3 days. She denies any anap hylaxis, rash or itchy. At this time given her history of cancer we will obtain a septic work-up and contact the knockout man for further evaluation. Laboratory: CBC is unremarkable. CMP is unremarkable. INR is normal. The radiological images were viewed by myself along with reading the report from the radiologist. Chest x-ray does not reveal any acute cardiopulmonary process however there is mild widespread pulmonary opacities which is interstitial lung disease or atypical pneumonia. I spoke with Dr. Unger the knockout man at [facility] who recommended a 5-day IV vancomycin treatment and then we need to figure out how to transfer to p.o. medication. At this time I spoke with our hospitalist Dr. Andrea who recommended speaking with a infectious disease physician for proper treatment. I spoke with Dr. Schwab infectious disease physician at [facility] who reviewed the patient's respiratory cultures and recommended linezolid. He recommended a 7-day course. I discussed this with the patient she was amenable to this plan. Given the patient is not septic and overall appears well we will trial the patient with the medication to see if she has any reaction currently. We did provide the patient with IV vancomycin prior to this recommendation. Patient did not have any reaction. I discussed the importance of taking the medication as prescribed and keep her follow-up appoint with oncology. She was amenable discharge at this time and had no further questions DISPOSITION: The patient was discharged home in stable condition. The patient will follow up with her oncologist at her scheduled appointment in 2 days CONDITION: Fair PROCEDURES: None FINAL IMPRESSION(S)/DIAGNOSES: 1. Chronic dyspnea possibly secondary to strep pneumonia Hao Simmons M.D. chest Pain Score (Numeric/FACES): 6 - Related Data Allergies Allergy/AdvReac Type Severity Reaction Status Date / Time atorvastatin calcium Allergy Unknown Verified 09/24/20 20:31 [From Lipitor] clarithromycin Allergy Unknown Verified 09/24/20 20:31 gabapentin [From Neurontin] Allergy Unknown Verified 09/24/20 20:31 hydrochlorothiazide Allergy Itching Verified 09/24/20 20:31 ibuprofen Allergy Unknown Verified 09/24/20 20:31 levetiracetam [From Keppra] Allergy Nausea and Verified 09/24/20 20:31 Vomiting pitavastatin calcium Allergy Nausea and Verified 09/24/20 20:31 [From Livalo] Vomiting pravastatin Allergy Nausea and Verified 09/24/20 20:31 Vomiting pregabalin [From Lyrica] Allergy Unknown Verified 09/24/20 20:31 rosuvastatin calcium Allergy Unknown Verified 09/24/20 20:31 [From Crestor] Gloygvn-Muo-Lyf Reductase Allergy Itching Verified 09/24/20 20:31 Inhibitor tramadol Allergy Itching Verified 09/24/20 20:31 "All antibiotics" Allergy Unknown Other Uncoded 09/24/20 20:31 keppra Allergy Nausea and Uncoded 08/18/18 13:23 Vomiting tape Allergy Rash Uncoded 08/18/18 13:23 Home Meds: Home Meds Clopidogrel [Plavix] 75 mg PO DAILY 09/09/14 [History] Isosorbide Mononitrate [Isosorbide Mononitrate ER] 60 mg PO DAILY 09/09/14 [History] hydroCHLOROthiazide [Hydrochlorothiazide] 25 mg PO DAILY 09/09/14 [History] Aspirin [Halfprin] 81 mg PO DAILY 10/11/14 [History] Losartan [Cozaar] 50 mg PO DAILY 10/11/14 [History] Aspirin 325 mg PO DAILY 06/23/17 [History] Nitroglycerin [Nitrostat] 0.4 mg SL .EVERY 5 MINUTES PRN MDD 3 TABLETS 06/23/17 [History] cycloSPORINE [Restasis Multidose] 1 drop EYEBOTH BID 06/23/17 [History] Metoprolol Tartrate 50 mg PO BID 08/18/18 [History] amLODIPine [Norvasc] 5 mg PO DAILY 08/18/18 [History] traMADol [Ultram] 100 mg PO ASDIRECTED PRN 08/18/18 [History] Linezolid [Zyvox] 600 mg PO Q12H #13 tab 09/24/20 [Rx] Past Medical History HEENT History: Reports: Other (See Below) Other HEENT History: dry eyes Cardiovascular History: Reports: High Cholesterol, Hypertension, Stents Respiratory History: Reports: COPD Gastrointestinal History: Reports: GERD Genitourinary History: Reports: UTI, Recurrent [employer] EX[employer]ER History: Reports: Musculoskeletal History: Reports: Arthritis Neurological History: Reports: Migraines Psychiatric History: Reports: None Endocrine/Metabolic History: Reports: None Hematologic History: Reports: None Immunologic History: Reports: None Oncologic (Cancer) History: Reports: None Dermatologic History: Reports: Eczema - Infectious Disease History Infectious Disease History: Reports: C-Difficile, Chicken Pox, Novel Coronavirus, Shingles - Past Surgical History Head Surgeries/Procedures: Reports: None HEENT Surgical History: Reports: Cataract Surgery Cardiovascular Surgical History: Reports: None Other Cardiovascular Surgeries/Procedures: " 6 stents, 4 ballons" Respiratory Surgical History: Reports: Other (See Below) Other Respiratory Surgeries/Procedures: Bronch GI Surgical History: Reports: Appendectomy, Cholecystectomy Female Surgical History: Reports: None Endocrine Surgical History: Reports: None Neurological Surgical History: Reports: None Musculoskeletal Surgical History: Reports: Knee Replacement, Other (See Below) Other Musculoskeletal Surgeries/Procedures:: bilateral Oncologic Surgical History: Reports: None Dermatological Surgical History: Reports: None Social & Family History - Family History Family Medical History: No Pertinent Family History - Tobacco Use Tobacco Use Status *Q: Never Tobacco User - Caffeine Use Caffeine Use: Reports: None Caffeine Use Comment: occasional - Recreational Drug Use Recreational Drug Use: No ED ROS GENERAL - Review of Systems Review Of Systems: See Below ED EXAM, GENERAL - Physical Exam Exam: See Below Course - Vital Signs Last Recorded V/S: Last Vital Signs Temp 37.2 C 09/24/20 20:43 Pulse 62 09/25/20 00:13 Resp 18 09/25/20 00:13 BP 126/41 L 09/25/20 00:13 Pulse Ox 97 09/25/20 00:13 - Orders/Labs/Meds Orders: Active Orders 24 hr Category Date Time Status CULTURE BLOOD [BC] Stat Lab 09/24/20 20:38 Results CULTURE BLOOD [BC] Stat Lab 09/24/20 21:00 Received Blood Culture x2 Reflex Set [OM.PC] Stat Oth 09/24/20 20:46 Ordered Saline Lock Insert [OM.PC] Stat Oth 09/24/20 20:46 Ordered Labs: Laboratory Tests 09/24/20 09/24/20 09/24/20 Range/Units 20:38 20:38 20:38 WBC 5.36 (4.0-11.0) K/uL RBC 4.20 L (4.30-5.90) M/uL Hgb 12.0 (12.0-16.0) g/dL Hct 36.0 (36.0-46.0) % MCV 85.7 (80.0-98.0) fL MCH 28.6 (27.0-32.0) pg MCHC 33.3 (31.0-37.0) g/dL RDW Std Deviation 45.3 (28.0-62.0) fl RDW Coeff of Raj 15 (11.0-15.0) % Plt Count 140 L (150-400) K/uL MPV 10.70 (7.40-12.00) fL Neut % (Auto) 65.7 (48.0-80.0) % Lymph % (Auto) 18.5 (16.0-40.0) % Petroleum % (Auto) 10.4 (0.0-15.0) % Eos % (Auto) 4.7 (0.0-7.0) % Baso % (Auto) 0.7 (0.0-1.5) % Neut # (Auto) 3.5 (1.4-5.7) K/uL Lymph # (Auto) 1.0 (0.6-2.4) K/uL Petroleum # (Auto) 0.6 (0.0-0.8) K/uL Eos # (Auto) 0.3 (0.0-0.7) K/uL Baso # (Auto) 0.0 (0.0-0.1) K/uL Nucleated RBC % 0.0 /100WBC Nucleated RBCs # 0 K/uL INR 1.03 Sodium 141 (136-145) mmol/L Potassium 4.0 (3.5-5.1) mmol/L Chloride 104 (98-107) mmol/L Carbon Dioxide 27.6 (21.0-32.0) mmol/L BUN 24 H (7.0-18.0) mg/dL Creatinine 1.0 (0.6-1.0) mg/dL Est Cr Clr Drug Dosing 41.05 mL/min Estimated GFR (MDRD) 53.5 ml/min Glucose 151 H (74-106) mg/dL Lactic Acid (0.4-2.0) mmol/L Calcium 8.6 (8.5-10.1) mg/dL Total Bilirubin 0.6 (0.2-1.0) mg/dL AST 22 (15-37) IU/L ALT 29 (14-63) IU/L Alkaline Phosphatase 82 (46-116) U/L Troponin I < 0.050 (0.000-0.056) ng/mL Total Protein 6.6 (6.4-8.2) g/dL Albumin 3.5 (3.4-5.0) g/dL Globulin 3.1 (2.6-4.0) g/dL Albumin/Globulin Ratio 1.1 (0.9-1.6) 09/24/20 Range/Units 20:38 WBC (4.0-11.0) K/uL RBC (4.30-5.90) M/uL Hgb (12.0-16.0) g/dL Hct (36.0-46.0) % MCV (80.0-98.0) fL MCH (27.0-32.0) pg MCHC (31.0-37.0) g/dL RDW Std Deviation (28.0-62.0) fl RDW Coeff of Raj (11.0-15.0) % Plt Count (150-400) K/uL MPV (7.40-12.00) fL Neut % (Auto) (48.0-80.0) % Lymph % (Auto) (16.0-40.0) % Petroleum % (Auto) (0.0-15.0) % Eos % (Auto) (0.0-7.0) % Baso % (Auto) (0.0-1.5) % Neut # (Auto) (1.4-5.7) K/uL Lymph # (Auto) (0.6-2.4) K/uL Petroleum # (Auto) (0.0-0.8) K/uL Eos # (Auto) (0.0-0.7) K/uL Baso # (Auto) (0.0-0.1) K/uL Nucleated RBC % /100WBC Nucleated RBCs # K/uL INR Sodium (136-145) mmol/L Potassium (3.5-5.1) mmol/L Chloride (98-107) mmol/L Carbon Dioxide (21.0-32.0) mmol/L BUN (7.0-18.0) mg/dL Creatinine (0.6-1.0) mg/dL Est Cr Clr Drug Dosing mL/min Estimated GFR (MDRD) ml/min Glucose (74-106) mg/dL Lactic Acid 1.1 (0.4-2.0) mmol/L Calcium (8.5-10.1) mg/dL Total Bilirubin (0.2-1.0) mg/dL AST (15-37) IU/L ALT (14-63) IU/L Alkaline Phosphatase (46-116) U/L Troponin I (0.000-0.056) ng/mL Total Protein (6.4-8.2) g/dL Albumin (3.4-5.0) g/dL Globulin (2.6-4.0) g/dL Albumin/Globulin Ratio (0.9-1.6) Meds: Medications Discontinued Medications Generic Name Dose Route Start Last Admin Trade Name Freq PRN Reason Stop Dose Admin Heparin Sodium (Porcine) 500 units 09/24/20 23:54 09/25/20 00:14 Heparin Sodium 100 Units/Ml 5 Ml Syringe FLUSH 500 units ASDIRECTED PRN Administration Other Vancomycin HCl 1.5 gm/ 250 mls @ 167 mls/hr 09/24/20 20:46 09/24/20 21:41 Dextrose/Water IV 09/24/20 22:15 Not Given ONETIME ONE Vancomycin HCl 1.5 gm/ Premix 300 mls @ 200 mls/hr 09/24/20 21:41 09/24/20 21:50 IV 09/24/20 23:10 200 mls/hr ONETIME ONE Administration Sodium Chloride 1,000 mls @ 999 mls/hr 09/24/20 23:00 09/24/20 23:08 Normal Saline IV 999 mls/hr ASDIRECTED ERNA Administration Sodium Chloride 1,000 mls @ 999 mls/hr 09/24/20 23:02 09/24/20 23:10 Normal Saline IV 09/25/20 00:02 Not Given STAT STA Linezolid 600 mg 09/24/20 22:14 09/24/20 22:35 Linezolid 600 Mg Tab PO 09/24/20 22:15 600 mg Q12H STA Administration Sodium Chloride 10 ml 09/24/20 20:46 09/24/20 21:40 Sodium Chloride 0.9% 10 Ml Syringe FLUSH 10 ml ASDIRECTED PRN Administration Keep Vein Open Sodium Chloride 2.5 ml 09/24/20 20:46 09/24/20 21:40 Sodium Chloride 0.9% 2.5 Ml Syringe FLUSH 2.5 ml ASDIRECTED PRN Administration Keep Vein Open Departure - Departure Time of Disposition: 23:52 Disposition: Home, Self-Care 01 Condition: Good, Fair Clinical Impression: Infection, streptococcus pneumoniae - Discharge Information *PRESCRIPTION DRUG MONITORING PROGRAM REVIEWED*: No *COPY OF PRESCRIPTION DRUG MONITORING REPORT IN PATIENT ZENAIDA: No Prescriptions: Linezolid [Zyvox] 600 mg PO Q12H #13 tab Instructions: Community-Acquired Pneumonia, Adult, [id number] Referrals: Bart Crowe MD [Primary Care Provider] - Forms: ED Department Discharge Additional Instructions: Your evaluated today on an emergent basis. At this time in discussion with your knockout man and an infectious disease physician Dr. Schwab at they recommended linezolid twice a day for the next 7 days. I do recommend you keep your oncology appointment in 1 day. If you have any worsening symptoms I would like you to return to the emergency department. [facility] [address] [place] [address] [facility] [address] [place] [id number] The patient is informed of any results of their evaluation and diagnostic workup and all questions are answered. They are given discharge instructions and return precautions. The patient is stable for discharge. The patient states they understand and agree with the plan and that they will return if their symptoms get worse or if they have any new concerns. The following information is given to patients seen in the emergency department who are being discharged to home. This information is to outline your options for follow-up care. We provide all patients seen in our emergency department with a follow-up referral. The need for follow-up, as well as the timing and circumstances, are variable depending upon the specifics of your emergency department visit. If you don't have a primary care physician on staff, we will provide you with a referral. We always advise you to contact your personal physician following an emergency department visit to inform them of the circumstance of the visit and for follow-up with them and/or the need for any referrals to a consulting specialist. The emergency department will also refer you to a specialist when appropriate. This referral assures that you have the opportunity for follow-up care with a specialist. All of these measure are taken in an effort to provide you with optimal care, which includes your follow-up. Under all circumstances we always encourage you to contact your private physician who remains a resource for coordinating your care. When calling for follow-up care, please make the office aware that this follow-up is from your recent emergency room visit. If for any reason you are refused follow-up, please contact the [facility] Emergency Department at and asked to speak to the emergency department charge nurse. Sepsis Event Note (ED) - Evaluation Sepsis Screening Result: Possible Sepsis Risk - Focused Exam Vital Signs: Vital Signs Temp Temp Pulse Resp BP Pulse Ox 09/25/20 00:13 62 18 126/41 L 97 09/24/20 23:10 73 19 143/55 H 98 09/24/20 20:43 37.2 C 09/24/20 20:27 35.3 C L 91 19 144/64 H 95 - My Orders Last 24 Hours: My Active Orders 09/24/20 20:38 CULTURE BLOOD [BC] Stat 09/24/20 20:46 Blood Culture x2 Reflex Set [OM.PC] Stat Saline Lock Insert [OM.PC] Stat 09/24/20 21:00 CULTURE BLOOD [BC] Stat - Assessment/Plan Last 24 Hours: My Active Orders 09/24/20 20:38 CULTURE BLOOD [BC] Stat 09/24/20 20:46 Blood Culture x2 Reflex Set [OM.PC] Stat Saline Lock Insert [OM.PC] Stat 09/24/20 21:00 CULTURE BLOOD [BC] Stat
[2020-09-25 00:44] VITALS: BP 126/41; PULSE 62
== END 2020-09-25 00:13 | disposition home or self-care (01) ==
LOC: MW.ED 20:18
DX: J13 Pneumonia due to Streptococcus pneumoniae (principal); I10 Essential (primary) hypertension; J44.9 Chronic obstructive pulmonary disease, unspecified; Z86.16 Personal history of COVID-19; Z79.82 Long term (current) use of aspirin; Z79.01 Long term (current) use of anticoagulants; Z79.899 Other long term (current) drug therapy; Z88.8 Allergy status to other drugs, medicaments and biological substances; Z88.1 Allergy status to other antibiotic agents; Z88.6 Allergy status to analgesic agent; Z88.5 Allergy status to narcotic agent; Z91.048 Other nonmedicinal substance allergy status
CPT/HCPCS: 36415; 71046; 80053; 83605; 84484; 85025; 85610; 87040; 96365; 99283; A9270; J1642; J3370; J7030